=== PATIENT | male | born 1960 | race Caucasian/White ===

== ENCOUNTER 2019-04-30 18:32 | Inpatient (IN) | payer MEDICAID, OTHER ==
[~2019-04-30] VITALS: Ht 170.2 cm; Wt 86.2 kg
[2019-04-30] MEDS ORDERED: ACETAMINOPHEN 500 MG TAB PO ONE (19:00)
[2019-04-30 19:44] LABS: Albumin 2.6 g/dL (3.4-5.0); BUN/Creatinine Ratio 20.8; Calcium 7.4 mg/dL (8.5-10.1); Potassium 4.1 mmol/L (3.5-5.1)
[2019-04-30 19:50] LABS: Bilirubin, Total 1.2 mg/dL (0.2-1.0); Total Protein 5.7 g/dL (6.4-8.2)
[2019-04-30 19:57] LABS: Basophils # (auto) 0 uL; Basophils % (auto) 0.2 % (0.0-2.0); Eosinophils # (auto) 0 uL; Hematocrit 38.4 % (41.0-53.0); Hemoglobin 13.9 g/dL (13.5-17.5); Lymphocytes # (auto) 0.3 uL; Lymphocytes % (auto) 4.7 % (10.0-50.0); Mean Corpuscular Hemoglobin 33.1 pg (28.0-32.0); Mean Corpuscular Hgb Conc. 36.3 g/dL (32.0-36.0); Monocytes # (auto) 0.1 uL; Monocytes % (auto) 1.7 % (0.0-12.0); Neutrophils # (auto) 5.4 uL; Neutrophils % (auto) 93.4 % (37.0-80.0); Platelet Count (auto) 90 10^3/uL (140-450); Red Blood Cells 4.21 10^6/uL (4.5-5.90); Red Cell Distribution Width 13.1 % (11.8-14.3); White Blood Cell 5.8 10^3/uL (4.4-10.8)
[2019-04-30] MEDS ORDERED: ALBUTEROL SULF 2.5 MG/0.5ML(0.5%) NEB SOLN NEB ONE (20:00)
[2019-04-30] MEDS ORDERED: IPRATROPIUM BROM 0.5 MG/2.5ML INH SOL NEB ONE (20:15)
[2019-04-30 20:56] LABS: INR 1.22 (0.9-1.15); Partial Thromboplastin Time 34.4 sec (23.64-32.05)
[2019-04-30] MEDS ORDERED: IOHEXOL 350 MG/ML 100ML IJ ONE (21:41)
[2019-04-30] MEDS ORDERED: FUROSEMIDE 20 MG/2 ML VIAL IV ONE (21:45)
[2019-04-30] MEDS ORDERED: SODIUM CHL 3% 500 ML IV ONE (22:00)
[2019-05-01] VITALS (8 sets, daily range): BP systolic 105–161; BP diastolic 36–86
[2019-05-01] MEDS ORDERED: TEMAZEPAM 15 MG CAP PO PRN (00:45)
[2019-05-01] MEDS ORDERED: ALBUTEROL SULF 2.5 MG/0.5ML(0.5%) NEB SOLN NEB PRN (00:45)
[2019-05-01] MEDS ORDERED: NITROGLYCERIN 0.4 MG SL TAB SL PRN (00:45)
[2019-05-01] MEDS ORDERED: MORPHINE SULF INJ 2 MG/ML SYRINGE 1ML IV PRN (00:45)
[2019-05-01] MEDS ORDERED: HYDROcodone-ACET 5/325MG TAB PO PRN (00:45)
[2019-05-01] MEDS ORDERED: ONDANSETRON HCL 4 MG/2 ML VIAL IV PRN (00:45)
--- NOTE | 2019-05-01 01:55 | NUR ---
Admit to [facility] ELISEO TRUJILLO admitted to [facility] via gurney on dimension warehouse supervisor, and portable 02. Patient transferred to bed, connected to unit monitoring and oxygen, and weighed by bed scale. Patient oriented to Claudette perez RN, unit, room, bed, and unit policies regarding patient care and visiting hours. All questions and concerns addressed, patient verbalized understanding. NOTE: PATIENT IS AWAKE, ALERT AND ORIENTED X4. NO DISTRESS OR PAIN NOTED. ON 5L N/C POX 91%. PHYSICAL ASSESSMENT COMPLETED, SEE INTERVENTIONS. INSTRUCTED ON POC AND TO CALL FOR ASSIST NEEDED. BED IS IN THE LOWEST POSITION WITH SIDE RAILS UP X2, CALL LIGHT IS WITHIN REACH.
[2019-05-01] MEDS ORDERED: methylPREDNISolone SOD SUCC 125 MG/2 ML VL IV ONE (02:00)
[2019-05-01] MEDS ORDERED: LEVOFLOXACIN 500MG 100 ML IV ONE (02:00)
[2019-05-01] MEDS ORDERED: SODIUM CHL 3% 500 ML IV ONE ×2 (02:00→06:30)
[2019-05-01] MEDS ORDERED: ALBUMIN 5% 250 ML IV ONE (02:00)
[2019-05-01] MEDS ORDERED: LISI-275 PO (02:45)
[2019-05-01] MEDS: guaiFENesin-DM 100/10mg/5ml SYR PO PRN ×2 (04:14→09:12)
[2019-05-01 05:05] LABS: Hemoglobin 13.5 g/dL (13.5-17.5); Red Blood Cells 4.04 10^6/uL (4.5-5.90); Red Cell Distribution Width 12.8 % (11.8-14.3)
[2019-05-01 05:11] LABS: Platelet Count (auto) 73 10^3/uL (140-450)
[2019-05-01 05:28] LABS: Calcium 7.7 mg/dL (8.5-10.1); Potassium 4.2 mmol/L (3.5-5.1)
[2019-05-01 05:32] LABS: Albumin 2.4 g/dL (3.4-5.0); BUN/Creatinine Ratio 21.7
[2019-05-01 05:33] LABS: Total Protein 5.6 g/dL (6.4-8.2)
[2019-05-01 05:55] LABS: White Blood Cell 1.8 10^3/uL (4.4-10.8)
[2019-05-01 05:56] LABS: Basophils % (manual) 0 (0.0-2.0); Blast Cells 0; Eosinophils % (manual) 0 (0-7); Metamyelocytes % 0; Myelocytes % 0; Promyelocytes % 0; Reactive Lymphocytes 0
[2019-05-01] MEDS ORDERED: VANCOMYCIN PER PHARMACY 0 MG IV SCH (06:30)
--- NOTE | 2019-05-01 07:00 | NUR ---
ULTRASOUND AT BEDSIDE FOR LIVER US.
--- NOTE | 2019-05-01 07:30 | NUR ---
REPORT GIVEN AND CARE ENDORSED TO JENNIFER PEREZ
--- NOTE | 2019-05-01 07:30 | NUR ---
RECEIVED PATIENT SITTING UP IN THE BED, A/O TIMES 4, O2 AT 5L BY THE N/C, USES THE BSC AND URINAL, NS 3% infusing into the rt hand at 30ml/hr by the iv pump, denies pain, has a dry cough
[2019-05-01] MEDS: VANCOMYCIN 1GM/250ML 250 ML IV SCH ×3 (08:00→20:07)
[2019-05-01 08:04] LABS: Hematocrit 37.6 % (41.0-53.0); Mean Corpuscular Hemoglobin 32.8 pg (28.0-32.0); Mean Corpuscular Hgb Conc. 35.6 g/dL (32.0-36.0)
[2019-05-01 08:05] LABS: Band Neutrophils % (manual) 20; Lymphocytes % (manual) 17 (10.0-50.0); Monocytes % (manual) 7 (0-12)
--- NOTE | 2019-05-01 08:30 | NUR ---
UP TO THE BSC WITH STANDBY ASSISTANCE
[2019-05-01] MEDS: FAMOTIDINE 20 MG TAB PO SCH ×2 (09:12→21:18)
--- NOTE | 2019-05-01 09:15 | NUR ---
DISCUSSED MEDICATIONS WITH THE PATIENT REGARDING THE DOSAGE, USAGE AND THE SIDE EFFECTS, VERBALIZED THAT HE UNDERSTOOD AND MEDS GIVEN ORDERED
--- NOTE | 2019-05-01 09:30 | NUR ---
ECHO BEING DONE
[2019-05-01 09:31] LABS: Basophils # (auto) 0 uL; Basophils % (auto) 0.1 % (0.0-2.0); Eosinophils # (auto) 0 uL; Eosinophils % (auto) 0.1 % (0.0-7.0); Hematocrit 37.3 % (41.0-53.0); Hemoglobin 13.4 g/dL (13.5-17.5); Lymphocytes # (auto) 0.1 uL; Lymphocytes % (auto) 4.3 % (10.0-50.0); Mean Corpuscular Hgb Conc. 35.9 g/dL (32.0-36.0); Monocytes # (auto) 0 uL; Monocytes % (auto) 0.8 % (0.0-12.0); Neutrophils # (auto) 2.5 uL; Neutrophils % (auto) 94.7 % (37.0-80.0); Nucleated Red Blood Cells % 0.1 %; Platelet Count (auto) 71 10^3/uL (140-450); Red Blood Cells 4.05 10^6/uL (4.5-5.90); Red Cell Distribution Width 12.8 % (11.8-14.3); White Blood Cell 2.7 10^3/uL (4.4-10.8)
[2019-05-01 09:51] LABS: Albumin 2.6 g/dL (3.4-5.0); Calcium 7.5 mg/dL (8.5-10.1); Potassium 4.5 mmol/L (3.5-5.1)
[2019-05-01 09:58] LABS: BUN/Creatinine Ratio 22.1; Bilirubin, Total 2.1 mg/dL (0.2-1.0); Total Protein 5.1 g/dL (6.4-8.2)
[2019-05-01] MEDS ORDERED: ASPirin 81 mg TAB PO SCH (10:00)
--- NOTE | 2019-05-01 10:20 | NUR ---
DR STALLWORTH IN TO SEE THE PATIENT AND WROTE NEW ORDER
[2019-05-01] MEDS ORDERED: AZITHROMYCIN 500MG/ 250ML 250 ML IV ONE (10:30)
[2019-05-01] MEDS ORDERED: guaiFENesin-CODEINE Liq 5 ML UD PO ONE (10:30)
--- NOTE | 2019-05-01 11:30 | NUR ---
PATIENT COUGHING, BUT ITS DRY AND CAN'T GET UP A SPECIMEN
--- NOTE | 2019-05-01 12:30 | NUR ---
AZAM CANVAS SHRINKER IN TO SEE THE PATIENT
[2019-05-01] MEDS ORDERED: ASPirin 81 mg TAB PO ONE (12:45)
--- NOTE | 2019-05-01 12:45 | NUR ---
EATING HIS LUNCH SITTING UP IN BED
[2019-05-01 13:00] LABS: Magnesium 2.3 mg/dL (1.6-2.6)
[2019-05-01 13:22] LABS: Urine Bacteria None Seen /hpf (None Seen)
--- NOTE | 2019-05-01 13:30 | NUR ---
SITTING UP IN THE BED WITH HIS EYES CLOSED, PATIENT IS COUGHING BUT HAS A DRY COUGH
[2019-05-01] MEDS ORDERED: ACETYLCYSTEINE 10 %(100MG/ML) SOL 4ML NEB SCH (14:00)
[2019-05-01 14:06] LABS: Alcohol, Urine < 3.0 mg/dL (0-5); Cannabinoid Screen, Urine NEGATIVE (NEGATIVE)
[2019-05-01 14:15] LABS: Urine Specific Gravity 1.014 (1.001-1.035)
[2019-05-01 14:16] LABS: Urine Blood 2+ /uL (Negative)
[2019-05-01 14:17] LABS: Amphetamine Screen, Urine NEGATIVE (NEGATIVE); Barbiturate Scree,Urine NEGATIVE (NEGATIVE); Benzodiazephine Screen, Urine NEGATIVE (NEGATIVE); Cocaine Screen, Urine NEGATIVE (NEGATIVE); Opiate Scree,Urine POSITIVE (NEGATIVE); Phencyclidine Screen, Urine NEGATIVE (NEGATIVE)
[2019-05-01 14:18] LABS: Urine WBC <1 /hpf (0 - 3)
[2019-05-01 14:19] LABS: Urine Amorphous Crystal FEW /hpf (None Seen)
--- NOTE | 2019-05-01 14:40 | NUR ---
3%NS STOPPED DUE TO LEVEL OF 142
--- NOTE | 2019-05-01 15:05 | NUR ---
IN TO SEE THE PATENT
--- NOTE | 2019-05-01 15:20 | NUR ---
DR CENTENO IN TO SEE THE PATIENT AND WROTE NEW ORDERS FOR RT
[2019-05-01] MEDS ORDERED: DESMOPRESSIN ACET 4 MCG/1 ML AMPULE IV ONE (16:00)
[2019-05-01] MEDS: D5W 5% 1,000 ML IV SCH ×2 (16:00→21:18)
[2019-05-01] MEDS: guaiFENesin-CODEINE Liq 5 ML UD PO PRN ×2 (16:39→21:20)
--- NOTE | 2019-05-01 16:39 | NUR ---
cough syrup given
--- NOTE | 2019-05-01 17:44 | NUR ---
STATES THE COUGH SYRUP HELPS HIM WITH HIS COUGH
--- NOTE | 2019-05-01 18:22 | NUR ---
SITTING UP IN THE BED A/O TIMES 4, O2 AT 4L BY THE N/C, D5W AT 150ML/HR INFUSING BY THE IV PUMP, USES THE URINAL OR BSC, SALINE LOCK TO THE RT HAND INTACT FLUSHED AND PATENT, NO COMPLAINTS OF PAIN, BREATHING TREATMENT BEING GIVEN, WILL CONTINUE TO MONITOR AND GIVE REPORT TO THE NEXT SHIFT, FAMILY IN TO VISIT
[2019-05-01] MEDS: ACETYLCYSTEINE 20%(200MG/ML) SOL 4ML NEB SCH ×2 (18:24→21:53)
[2019-05-01] MEDS: IPRATROPIUM BROM 0.5 MG/2.5ML INH SOL NEB SCH ×2 (18:24→21:53)
[2019-05-01] MEDS: ALBUTEROL SULF 2.5 MG/0.5ML(0.5%) NEB SOLN NEB SCH ×2 (18:24→21:53)
--- NOTE | 2019-05-01 20:00 | NUR ---
SHIFT OPENING NOTE RECEIVED PATIENT AWAKE, ALERT AND ORIENTED X4. NO DISTRESS OR PAIN NOTED. ON 5L N/C POX 90%. CONTINUOUSLY COUGHS. PHYSICAL ASSESSMENT COMPLETED, SEE INTERVENTIONS. INSTRUCTED ON POC AND TO CALL FOR ASSIST NEEDED. BED IS IN THE LOWEST POSITION WITH SIDE RAILS UP X2, CALL LIGHT IS WITHIN REACH.
[2019-05-01] MEDS: METOPROLOL TARTRATE 25 MG TAB PO SCH (21:18)
[2019-05-02] VITALS (8 sets, daily range): BP systolic 107–118; BP diastolic 56–66
[2019-05-02] MEDS ORDERED: LEVOFLOXACIN 500MG 100 ML IV SCH
[2019-05-02] MEDS: D5W 5% 1,000 ML IV SCH (01:28)
--- NOTE | 2019-05-02 01:30 | NUR ---
MORNING HYGIENE CARE FULL BED BATH PERFORMED USING CHG WIPES AND WARM SOAPY WASH CLOTHES. GOWN CHANGED. PARTIAL LINEN CHANGED. PATIENT REPOSITIONED FOR COMFORT. TOLERATED IT WELL.
--- NOTE | 2019-05-02 01:50 | NUR ---
PATIENT PULLED OUT IV BLOOD NOTED ON THE SHEETS AND GOWN. INTACT IV THAT WAS IN THE RIGHT FOREARM SITTING ON THE TABLE. PATIENT IS CONFUSED AND TRYING TO PULL OUT THINGS. MITTENS PLACED. FULL BED CHANGE DONE. WILL CLOSELY MONITOR.
[2019-05-02] MEDS: IPRATROPIUM BROM 0.5 MG/2.5ML INH SOL NEB SCH ×6 (02:11→22:32)
[2019-05-02] MEDS: ACETYLCYSTEINE 20%(200MG/ML) SOL 4ML NEB SCH ×6 (02:11→22:32)
[2019-05-02] MEDS: ALBUTEROL SULF 2.5 MG/0.5ML(0.5%) NEB SOLN NEB SCH ×6 (02:11→22:32)
[2019-05-02] MEDS ORDERED: HALOPERIDOL LACTATE 5 MG/ML INJ VIAL ONE (03:04)
[2019-05-02] MEDS ORDERED: HALOPERIDOL LACTATE 5 MG/ML INJ VIAL IM ONE (03:15)
--- NOTE | 2019-05-02 03:25 | NUR ---
PATIENT HAS BECOME VERY CONFUSED TRYING TO GET OUT OF BED AND PULL OFF GOWN, TELE PADS, IV. ORDER OBTAINED FOR HALDOL 2.5 MG IM ONCE FROM JAVAD HERRERA.
[2019-05-02 05:15] LABS: Basophils # (auto) 0 uL; Basophils % (auto) 0.7 % (0.0-2.0); Eosinophils # (auto) 0 uL; Hematocrit 35.6 % (41.0-53.0); Lymphocytes # (auto) 0.1 uL; Mean Corpuscular Hemoglobin 33.5 pg (28.0-32.0); Mean Corpuscular Hgb Conc. 36.5 g/dL (32.0-36.0); Mean Corpuscular Volume 91.9 fL (80.0-100.0); Monocytes # (auto) 0.2 uL; Monocytes % (auto) 3.6 % (0.0-12.0); Neutrophils # (auto) 4.6 uL; Neutrophils % (auto) 93.7 % (37.0-80.0); Nucleated Red Blood Cells % 0.1 %; Platelet Count (auto) 81 10^3/uL (140-450); Red Blood Cells 3.88 10^6/uL (4.5-5.90); White Blood Cell 4.9 10^3/uL (4.4-10.8)
[2019-05-02 05:27] LABS: Albumin 2.3 g/dL (3.4-5.0); Calcium 7.9 mg/dL (8.5-10.1); Potassium 4.4 mmol/L (3.5-5.1)
[2019-05-02 05:30] LABS: BUN/Creatinine Ratio 20.3; Bilirubin, Total 1.4 mg/dL (0.2-1.0); Total Protein 5.6 g/dL (6.4-8.2)
--- NOTE | 2019-05-02 06:10 | NUR ---
SPOKE WITH HIS ASIF UPDATED HER ON PATIENTS STATUS AND POC. SAID SHE WILL BE IN HERE AT 8
--- NOTE | 2019-05-02 06:40 | NUR ---
SPOKE WITH HOSPITALIST JAVAD HERRERA REGARDING CONFUSION, AND LOW SODIUM LEVELS. OBTAINED ORDER TO START PATIENT ON 0.9NS AT 75ML/H AND TO RECHECK SODIUM LEVELS EVERY 6 HOURS.
[2019-05-02] MEDS ORDERED: SODIUM CHLORIDE 0.9% 1,000 ML IV SCH (06:45)
--- NOTE | 2019-05-02 06:45 | NUR ---
END OF SHIFT PATIENT LAYING IN BED WITH EYES CLOSED. NS INFUSING AT 75 ML/H. SITTER AT BEDSIDE FOR SAFETY.
--- NOTE | 2019-05-02 07:30 | NUR ---
RECEIVED PATIENT SITTING UP IN THE BED, A/O TIMES 3, BUT SLIGHTLY CONFUSED, ABLE TO FOLLOW COMMANDS, RT HAND WITH NS AT 75ML/HR INFUSING BY THE IV PUMP, STATES HE CAN USE THE URINAL, MITTENS TO BOTH HANDS DUE TO HIS CONFUSION , SITTER AT BEDSIDE, DENIES PAIN, SCD'S TO BOTH LEGS
--- NOTE | 2019-05-02 08:40 | NUR ---
SITTER AT THE BESIDE TRIED TO GET THE PATIENT TO EAT HIS BREAKFAST BUT HE REFUSED
--- NOTE | 2019-05-02 09:15 | NUR ---
PATIENT HELPING WITH DOING ADLS
[2019-05-02] MEDS ORDERED: FUROSEMIDE 20 MG/2 ML VIAL IV ONE (09:45)
--- NOTE | 2019-05-02 09:50 | NUR ---
DR SANTOS IN TO SEE THE PATIENT
[2019-05-02] MEDS: VANCOMYCIN 1GM/250ML 250 ML IV SCH ×2 (09:51→21:14)
[2019-05-02] MEDS: METOPROLOL TARTRATE 25 MG TAB PO SCH (10:00)
[2019-05-02] MEDS ORDERED: ASPirin 81 mg TAB PO SCH (10:00)
[2019-05-02] MEDS ORDERED: LISINOPRIL 10 MG TAB PO SCH (10:00)
--- NOTE | 2019-05-02 10:00 | NUR ---
EXPLAIN MEDICATIONS TO THE PATIENT AND HIS REGARDING THE DOSAGE, USAGE AND THE SIDE EFFECTS, VERBALIZED THAT THEY UNDERSTOOD AND MEDS GIVEN ORDERED
--- NOTE | 2019-05-02 10:00 | NUR ---
URINE COLLECTED AND SENT TO THE LAB
[2019-05-02] MEDS: FAMOTIDINE 20 MG TAB PO SCH ×2 (10:02→21:15)
--- NOTE | 2019-05-02 10:15 | NUR ---
DR STALLWORTH INTO SEE THE PATIENT AND WROTE NEW ORDERS
--- NOTE | 2019-05-02 10:20 | NUR ---
SPUTUM COLLECTED AND SENT TO THE LAB
--- NOTE | 2019-05-02 10:30 | NUR ---
IN TO SEE THE PATIENT
--- NOTE | 2019-05-02 11:00 | NUR ---
SITTING UP IN THE BED TALKING TO HIS FAMILY
[2019-05-02] MEDS: AZITHROMYCIN 500MG/ 250ML 250 ML IV SCH (11:28)
--- NOTE | 2019-05-02 12:00 | NUR ---
PATIENT SITTING UP IN THE BED TALKING WITH HIS FAMILY
[2019-05-02 12:51] LABS: Potassium 3.7 mmol/L (3.5-5.1)
[2019-05-02] MEDS: LEVOFLOXACIN 750MG 150 ML IV SCH (12:56)
--- NOTE | 2019-05-02 13:02 | NUR ---
DAUGHTER AND AT THE BEDSIDE
--- NOTE | 2019-05-02 13:27 | NUR ---
SITTING UP IN THE BED EATING HIS LUNCH FAMILY AT THE BEDSIDE
--- NOTE | 2019-05-02 14:24 | NUR ---
BREATHING TREATMENT GIVEN
[2019-05-02 15:27] LABS: BUN/Creatinine Ratio 15.7; Potassium 3.7 mmol/L (3.5-5.1)
--- NOTE | 2019-05-02 15:29 | NUR ---
SITTING UP IN THE BED TALKING TO HIS
--- NOTE | 2019-05-02 15:55 | NUR ---
DR SANTOS BACK TO SEE THE PATIENT AND TALKING TO THE
--- NOTE | 2019-05-02 16:04 | NUR ---
SON IN TO SEE THE PATIENT
[2019-05-02] MEDS ORDERED: URE NA PO SCH (16:30)
[2019-05-02] MEDS ORDERED: UREA 15gm PO Powder PKG PO ONE (17:00)
--- NOTE | 2019-05-02 17:15 | NUR ---
FAMILY IN TALKING WITH HAS FAMILY
--- NOTE | 2019-05-02 17:54 | NUR ---
FAMILY AT THE BEDSIDE, PATIENT WATCHING TV, NO COMPLAINTS
--- NOTE | 2019-05-02 18:18 | NUR ---
FAMILY AT THE BEDSIDE, LYING IN BED APPEARS TO BE SLEEPING, O2 AT 5L BY THE OXYMIZER, ASKING FOR THE URINAL WHEN HE NEEDS TO URINATE, SALINE LOCK TO THE RT HAND FLUSHED AND PATENT, NO COMPLAINTS OF PAIN, O2 SAT 92%, NO SOB NOTED. BLOOD BE DRAWN ,WILL CONTINUE TO MONITOR AND GIVE REPORT TO THE NEXT SHIFT
[2019-05-02 19:24] LABS: Calcium 7.9 mg/dL (8.5-10.1); Potassium 3.7 mmol/L (3.5-5.1)
[2019-05-02] MEDS ORDERED: SODIUM CHL 3% 250 ML IV ONE (19:45)
[2019-05-02] MEDS ORDERED: FUROSEMIDE 40 MG/4 ML VIAL IV ONE (20:00)
[2019-05-02] MEDS: URE NA PO SCH (21:15)
[2019-05-02 22:51] LABS: Calcium 7.7 mg/dL (8.5-10.1); Potassium 3.5 mmol/L (3.5-5.1)
--- NOTE | 2019-05-02 23:13 | NUR ---
Start of shift pt's breathing seemed labored and O2 sat mid to upper 80's. RT placed pt on hi-flow, pt current O2 sat 92% on 30% FiO2. Lasix given as ordered. Pt using urinal. Urine went from coral to light yellow. Will continue to monitor. Last Na+ was 121. Pt seems more confused as night goes on with talking to self noted.
[2019-05-03] VITALS (10 sets, daily range): BP systolic 104–118; BP diastolic 47–73
[2019-05-03] MEDS: IPRATROPIUM BROM 0.5 MG/2.5ML INH SOL NEB SCH ×6 (02:42→22:02)
[2019-05-03] MEDS: ACETYLCYSTEINE 20%(200MG/ML) SOL 4ML NEB SCH ×6 (02:42→22:02)
[2019-05-03] MEDS: ALBUTEROL SULF 2.5 MG/0.5ML(0.5%) NEB SOLN NEB SCH ×6 (02:43→22:02)
[2019-05-03] MEDS: ACETAMINOPHEN 325 MG TAB PO PRN ×3 (03:52→23:55)
[2019-05-03 05:38] LABS: Basophils # (auto) 0 uL; Basophils % (auto) 0.3 % (0.0-2.0); Eosinophils # (auto) 0 uL; Hemoglobin 12.7 g/dL (13.5-17.5); Lymphocytes # (auto) 0.2 uL; Lymphocytes % (auto) 2.6 % (10.0-50.0); Mean Corpuscular Hemoglobin 33.2 pg (28.0-32.0); Mean Corpuscular Hgb Conc. 36.2 g/dL (32.0-36.0); Mean Corpuscular Volume 91.9 fL (80.0-100.0); Monocytes # (auto) 0.2 uL; Monocytes % (auto) 2.7 % (0.0-12.0); Neutrophils # (auto) 5.8 uL; Neutrophils % (auto) 94.4 % (37.0-80.0); Nucleated Red Blood Cells % 0.1 %; Platelet Count (auto) 112 10^3/uL (140-450); Red Blood Cells 3.82 10^6/uL (4.5-5.90); White Blood Cell 6.1 10^3/uL (4.4-10.8)
[2019-05-03 05:52] LABS: Potassium 3.4 mmol/L (3.5-5.1)
[2019-05-03 05:55] LABS: Albumin 2.2 g/dL (3.4-5.0); BUN/Creatinine Ratio 19.1
[2019-05-03 05:58] LABS: Bilirubin, Total 1.5 mg/dL (0.2-1.0); Total Protein 5.7 g/dL (6.4-8.2)
--- NOTE | 2019-05-03 06:32 | NUR ---
Pt has remained stable throughout shift. Did not tolerate Hi-flow entire shift and was switched back to Oxymizer mid shift and tolerated that well and was able to maintain O2 saturation WNL. Full bath and linen changed. Tolerated well. Pt has been up this morning talking on his cell phone to his . No signs or symptoms of distress. At 0400 temp was 100 degrees orally. Tylenol was given. Pt was very restless during shift but this morning he has been much more restful with small periods of restlessness. During this shift pt had to be watched closely for safety due to confusion and restlessness but has remained safe. Will continue to monitor.
--- NOTE | 2019-05-03 07:21 | NUR ---
Stable, resting in bed. Report given to am shift, care endorsed.
--- NOTE | 2019-05-03 08:00 | NUR ---
Opening Shift Note Assumed care of patient, laying in bed eyes closed, arousable to voice, not verbally answering questions, moves head for yes and no, able to follow commands. No S/S of distress/SOB or pain. Patient saturation 90% at 5 LPM oxygen via oxymizer. Bed locked on low position, side rails up x2, bed alarms on at all times, call solorio within reach, instructed to call for needed assistance, will continue to monitor for changes Q1hr and PRN.
--- NOTE | 2019-05-03 08:52 | NUR ---
Lenard rodriguez still pending, called lab, spoke to Lakshmi
[2019-05-03] MEDS: VANCOMYCIN 1GM/250ML 250 ML IV SCH (09:06)
[2019-05-03] MEDS ORDERED: POTASSIUM CHLORIDE 60 MEQ, LIDOCAINE 1% (LOCAL ANESTH.) 6 ML in SODIUM CHL 0.9% 500 ML IV ONE (09:30)
--- NOTE | 2019-05-03 09:35 | NUR ---
Dr Rodgers at bedside, updated on patient's status. Patient seen and examined. Received verbal order to check patient's sodium at 4pm today.
[2019-05-03] MEDS: AZITHROMYCIN 500MG/ 250ML 250 ML IV SCH (09:59)
[2019-05-03] MEDS: LEVOFLOXACIN 750MG 150 ML IV SCH (09:59)
[2019-05-03] MEDS ORDERED: FUROSEMIDE 40 MG/4 ML VIAL IV SCH (10:00)
--- NOTE | 2019-05-03 10:00 | NUR ---
Patient's Nicole at bedside, updated on patient's status and POC. verbalized understanding. All questions and concerns addressed.
--- NOTE | 2019-05-03 10:30 | NUR ---
Dr Otto at bedside,updated on patient's status. Patient seen and examined. Received verbal order to do ABG and place PICC line. Orders read back and verified. Will carry out.
[2019-05-03] MEDS ORDERED: cefTRIAXone 1GM/50ML D5W 50 ML IV ONE (11:00)
--- NOTE | 2019-05-03 11:00 | NUR ---
Dr Fuentes at bedside, updated on patient's status and ABG report. Patient seen and examined. Will carry out new orders.
--- NOTE | 2019-05-03 11:05 | NUR ---
Patient switched to 45 LPM Hi flow oxygen from 5 LPM oxymizer. Patient saturation 90%. Will continue to monitor.
--- NOTE | 2019-05-03 11:11 | NUR ---
Sputum sample sent to lab
[2019-05-03] MEDS ORDERED: guaiFENesin-DM 100/10mg/5ml SYR PO PRN (11:15)
[2019-05-03] MEDS ORDERED: ENOXAPARIN SOD 40 MG/0.4 ML SYRINGE SC ONE (11:15)
[2019-05-03] MEDS: FAMOTIDINE 20 MG TAB PO SCH ×2 (11:31→22:37)
[2019-05-03] MEDS: URE NA PO SCH ×2 (11:32→22:31)
[2019-05-03] MEDS: DEMECLOCYCLINE HCL 150 MG TAB PO SCH ×3 (11:32→23:13)
[2019-05-03 11:40] LABS: Protein, Urine 57.6 mg/dL (0.0-11.9)
--- NOTE | 2019-05-03 13:12 | NUR ---
Patient's temperature 101.3F, cooling measures done, will continue to monitor.
--- NOTE | 2019-05-03 14:30 | NUR ---
Came back form ashley, Johnnie HOFFMANN at bedside. Patient's Hi flow increased to 50 LPM, 65% FIO2, oxygen saturation 90%.
--- NOTE | 2019-05-03 14:35 | NUR ---
Patient's temperature 102 F. Cooling measures done. Will give Tylenol PRN. Will continue to monitor.
--- NOTE | 2019-05-03 16:00 | NUR ---
Patient's temperature 101F orally. Will continue to monitor.
[2019-05-03] MEDS ORDERED: UREA 15gm PO Powder PKG PO ONE (17:00)
--- NOTE | 2019-05-03 17:00 | NUR ---
Patient's temperature 100F orally. Cooling measures continued. Will continue to monitor.
--- NOTE | 2019-05-03 18:49 | NUR ---
Patient's sodium level 126, paged Dr Rodgers. Awaiting call back.
--- NOTE | 2019-05-03 19:03 | NUR ---
Received call from Dr Rodgers, updated on patient's status. verbalized understanding. Will check BMP tomorrow morning.
--- NOTE | 2019-05-03 19:30 | NUR ---
REPORT RECEIVED, ASSUMED CARE.
--- NOTE | 2019-05-03 22:41 | NUR ---
DAUGHTER CARMEL GARCIA CALLED, GAVE UPDATE, EXPLAINED POC AND ADDRESSED ALL QUESTIONS AND CONCERNS. DAUGHTER RESPONDEDWITH UNDERSTANDING AND COMPLIANCE.
[2019-05-04] VITALS (60 sets, daily range): BP systolic 73–147; BP diastolic 37–90
--- NOTE | 2019-05-04 00:07 | NUR ---
REPORT AND CARE GIVEN OFF TO AMANDA PEREZ.
--- NOTE | 2019-05-04 00:16 | NUR ---
Received report from Bulmaro PEREZ, assumed care of pt. [place]. No S/S of distress at this time. Will continue to monitor.
[2019-05-04] MEDS: ACETYLCYSTEINE 20%(200MG/ML) SOL 4ML NEB SCH ×6 (02:25→22:02)
[2019-05-04] MEDS: IPRATROPIUM BROM 0.5 MG/2.5ML INH SOL NEB SCH ×6 (02:25→22:01)
[2019-05-04] MEDS: ALBUTEROL SULF 2.5 MG/0.5ML(0.5%) NEB SOLN NEB SCH ×6 (02:25→22:02)
[2019-05-04 06:00] LABS: Hematocrit 39.8 % (41.0-53.0); Mean Corpuscular Hemoglobin 33.2 pg (28.0-32.0); Mean Corpuscular Hgb Conc. 35.2 g/dL (32.0-36.0); Mean Corpuscular Volume 94.2 fL (80.0-100.0); Platelet Count (auto) 154 10^3/uL (140-450); Red Blood Cells 4.22 10^6/uL (4.5-5.90); Red Cell Distribution Width 13.1 % (11.8-14.3); White Blood Cell 10.8 10^3/uL (4.4-10.8)
[2019-05-04 06:06] LABS: Basophils % (manual) 0 (0.0-2.0); Blast Cells 0; Eosinophils % (manual) 0 (0-7); Metamyelocytes % 0; Myelocytes % 0; Promyelocytes % 0; Reactive Lymphocytes 0
[2019-05-04 06:12] LABS: Calcium 7.8 mg/dL (8.5-10.1); Potassium 3.7 mmol/L (3.5-5.1)
[2019-05-04 06:17] LABS: BUN/Creatinine Ratio 30.4; Bilirubin, Total 1.9 mg/dL (0.2-1.0)
[2019-05-04] MEDS: DEMECLOCYCLINE HCL 150 MG TAB PO SCH ×3 (07:50→18:29)
--- NOTE | 2019-05-04 08:40 | NUR ---
RESPIRATORY RESP 33-38 AND LABORED, PATIENT SOB WITH SPEAKING. LUNGS COARSE WITH WHEEZING BILAT USP. O2 ON HI-FLOW FIO2 70%, 55 LITERS. PATIENT STATES NOT EXPECTORATING SPUTUM. SAO2 90%. RE DYE HAND INFORMED PATIENT OF IMPENDING TRANSFER TO ICU FOR HIGHER LEVEL OF CARE NEEDED IN ICU - VERBALIZES UNDERSTANDING BUT REQUEST TO WAIT UNTIL 1030 WHEN PATIENT'S ARRIVES. PATIENT INCONTINENT OF LG AMT ORANGE URINE. RE DYE HAND VOICED IMPORTANCE OF PLACING URINARY CATHETER - PATIENT REFUSES AT PRESENT.
[2019-05-04 08:46] LABS: Band Neutrophils % (manual) 5; Lymphocytes % (manual) 2 (10.0-50.0); Monocytes % (manual) 2 (0-12)
--- NOTE | 2019-05-04 09:00 | NUR ---
TEMP ELEVATED THIS AM - CALLED PHARMACY FOR TYLENOL. BC DONE.
--- NOTE | 2019-05-04 09:30 | NUR ---
DR STALLWORTH VISITS AND EXAMINES PATIENT - ORDERS RECEIVED. SENIOR INFORMATION SYSTEMS ARCHITECT PHONED PATIENT'S - INFORMED HER OF TRANSFER TO ICU - REQUESTS TO TALK TO MD - SPOKE TO DR STALLWORTH.
[2019-05-04] MEDS: cefTRIAXone 1GM/50ML D5W 50 ML IV SCH (09:46)
[2019-05-04] MEDS: FAMOTIDINE 20 MG TAB PO SCH ×2 (10:00→22:38)
[2019-05-04] MEDS: ENOXAPARIN SOD 40 MG/0.4 ML SYRINGE SC SCH (10:00)
[2019-05-04] MEDS ORDERED: FUROSEMIDE 40 MG/4 ML VIAL IV SCH (10:00)
[2019-05-04] MEDS: URE NA PO SCH ×2 (10:00→22:38)
--- NOTE | 2019-05-04 10:30 | NUR ---
DR GODDARD VISITS AND EXAMINES PATIENT - ORDERS RECEIVED.
--- NOTE | 2019-05-04 11:13 | NUR ---
REPORT RECEIVED FROM SOLANGE PEREZ IN [facility].
--- NOTE | 2019-05-04 11:13 | NUR ---
REPORT GIVEN TO CARMEL PEREZ.
--- NOTE | 2019-05-04 11:22 | NUR ---
PATIENT TRANSFERRED TO ROOM 110 PER RN AND PCT WITH PORTABLE O2 PER NON REBREATHER AND MANUFACTURING TECHNOLOGY ANALYST. RT NOTIFIED OF ICU TRANSFER. PATIENT'S AT BEDSIDE - INFORMED OF IMMEDIATE TRANSFER TO ICU - VERBALIZES UNDERSTANDING, MUCH REASSURANCE GIVEN.
--- NOTE | 2019-05-04 11:26 | NUR ---
PATIENT ARRIVED TO ROOM 110 ICU VIA BED CONNECTED TO PORTABLE MONITOR AND OXYGEN, ACCOMPANIED BY SWEAT BAND SEWER AND RESPIRATORY THERAPIST. PATIENT TRANSFERRED TO ICU BED AND CONNECTED TO BEDSIDE MONITOR.
[2019-05-04] MEDS ORDERED: ROCURONIUM 10MG/ML 10ML VIAL IV ONE ×2 (11:30→13:00)
[2019-05-04] MEDS ORDERED: ETOMIDATE (2MG/ML) 20ML VIAL IV ONE ×2 (11:30→13:00)
[2019-05-04] MEDS ORDERED: PROPOFOL 100 ML IV ONE (11:30)
[2019-05-04] MEDS ORDERED: fentaNYL Drip 2500mCg/250mlNS 250 ML IV ONE (11:30)
[2019-05-04] MEDS ORDERED: MIDAZOLAM HCL 1MG/1ML-2 ML VIAL ONE (11:31)
--- NOTE | 2019-05-04 11:42 | NUR ---
INTUBATION/CENTRAL LINE PLACEMENT/OGT PLACEMENT/ALVARADO PLACEMENT DR CENTENO AT BEDSIDE TO INTUBATE PATIENT. MEDICATIONS GIVEN PER MD ORDER. PER MD STARTED PROPOFOL DRIP PER PROTOCOL. INTUBATED 1143 SIZE 8, 24 LIP. VENTILATOR SETTINGS ORDERED BY MD. 1150 DR CENTENO PLACED CENTRAL LINE TO LEFT IJ. OGT PLACED. STAT CXR ORDERED. 1200 ALVARADO CATHETER PLACED AFTER 2 ATTEMPTS, SMALL AMOUNT OF BLEEDING NOTED. WILL CONTINUE TO MONITOR.
[2019-05-04] MEDS: PROPOFOL 100 ML IV SCH ×2 (11:50→15:38)
[2019-05-04] MEDS: fentaNYL Drip 2500mCg/250mlNS 250 ML IV SCH (12:00)
--- NOTE | 2019-05-04 12:11 | NUR ---
Respiratory note: PATIENT INTUBATED BY DR. CENTENO, AT APPROX 1143, FOR IMPENDING RESPIRATORY FAILURE. HE WAS TUBED WITH AN 8.0 ETT AND IT WAS SECURED VIA DIPIKA AT THE 24CM MARKING AT THE LIP. POSITIVE COLOR CHANGE WAS SEEN ON CO2 DETECTOR, BILATERAL BREATH SOUNDS WERE HEARD, AND CONDENSATION WAS SEEN IN THE TUBE. PATIENT WAS PLACED ON V17 V200 VENT WITH THE CHARTED SETTINGS, PER DR. CENTENO'S BEDSIDE ORDERS. SKIN IS WARM/DRY TO THE TOUCH AND IS INTACT NEAR DIPIKA SITE. SLIGHT EDEMA NOTED IN UPPER AND LOWER EXTREMITIES, AND A TRIPLE LUMEN CENTRAL LINE WAS PLACED IN THE LEFT IJ AT THIS TIME. PATIENT IS PARALYZED ON ROCURONIUM DRIP AND IS TOLERATING VENT WELL. VENT PLUGGED INTO RED OUTLET AND ALL ALARMS ARE SET AND AUDIBLE. WILL CONTINUE TO ASSESS PATIENT WELL VENTILATOR FUNCTION.
[2019-05-04] MEDS: MIDAZOLAM DRIP 50 mg/50mL 50 ML IV SCH ×3 (12:15→21:28)
[2019-05-04] MEDS ORDERED: MIDAZOLAM HCL 5 MG/ML-1ML VIAL ONE (12:31)
[2019-05-04] MEDS ORDERED: SODIUM CHLORIDE LOCK 0 ML ONE (12:31)
[2019-05-04] MEDS ORDERED: LIDOCAINE HCL 2% TOP JELLY 5ML TOP ONE (12:31)
[2019-05-04] MEDS ORDERED: NALOXONE HCL 0.4 MG/ML VIAL ONE (12:32)
[2019-05-04] MEDS ORDERED: MIDAZOLAM DRIP 50 mg/50mL 50 ML IV ONE (12:32)
[2019-05-04] MEDS ORDERED: fentaNYL CITRATE 100 MCG/2 ML VL ONE (12:33)
[2019-05-04] MEDS ORDERED: EPINEPHrine HCL 1 MG/1 ML AMP ONE (12:58)
[2019-05-04] MEDS ORDERED: LIDOCAINE 2%HCL (LOCAL ANESTH.) INJ 20ML MDV ONE (12:58)
[2019-05-04] MEDS ORDERED: NOREPINEPHRINE 8 MG/250ML KIT 250 ML IV ONE ×2 (13:07→21:21)
--- NOTE | 2019-05-04 13:59 | NUR ---
NUTRITION ASSESSMENT NOTES Please refer to link notes of nutrition screen form filed under the intervention section of the plan of care for further details. Est. Needs: 1850 kcal to 2350 kcal (20-25 kcal/kgBW), 74 gms to 93 gms pro (0.8-1.0 gms/kgBW). Will continue to monitor pertinent labs and reassess nutrient need prn Thank you. Addendum: 05/04/19 at [address] Amended: Links added.
--- NOTE | 2019-05-04 14:14 | NUR ---
CONSENT SIGNED BY AFTER INFORMATION WAS GIVEN AND EXPLAINED TO HER FOR BRONCHOSCOPY BY DR STALLWORTH. ALL QUESTIONS AND CONCERNS ADDRESSED.
--- NOTE | 2019-05-04 14:20 | NUR ---
DR CENTENO AT BEDSIDE TO PERFORM BRONCHOSCOPY ALONG WITH OR STAFF.
[2019-05-04] MEDS: FLUCONAZOLE 200MG/100ML 100 ML IV SCH (14:53)
[2019-05-04] MEDS: AZITHROMYCIN 500MG/ 250ML 250 ML IV SCH (14:53)
[2019-05-04] MEDS ORDERED: UREA 15gm PO Powder PKG PO ONE (17:00)
--- NOTE | 2019-05-04 19:50 | NUR ---
OPEN NOTES Received patient sedated and intubated. Febrile Temp 100.8F. Full assessment done - refer interventions On IV Levophed for BP support.will continue to monitor
--- NOTE | 2019-05-04 20:00 | NUR ---
SEDATION Patient's RR 30-33/min, stacking breaths Labored breaths noted Suctioned - small thin whitish from ETT Increased sedation for comfort
--- NOTE | 2019-05-04 20:30 | NUR ---
TEMP ELEVATED RECTAL TEMP 102F COOLING MEASURES DONE - COLD COMPRESS ON FOREHEAD, COOLING BLANKET ON
[2019-05-04] MEDS: ACETAMINOPHEN 325 MG TAB PO PRN (20:54)
[2019-05-04] MEDS: NOREPINEPHRINE 8 MG/250ML KIT 250 ML IV SCH (21:25)
[2019-05-04 21:59] LABS: BUN/Creatinine Ratio 23.4; Calcium 7.8 mg/dL (8.5-10.1); Potassium 3.8 mmol/L (3.5-5.1)
--- NOTE | 2019-05-04 22:00 | NUR ---
TEMP REMAINED ELEVATED PLACED ANOTHER COOLING BLANKET ON TOP OF PATIENT, SPONGE BATH DONE WILL CONTINUE TO MONITOR
[2019-05-05] VITALS (107 sets, daily range): BP systolic 80–126; BP diastolic 36–71
[2019-05-05] MEDS: fentaNYL Drip 2500mCg/250mlNS 250 ML IV SCH (00:44)
[2019-05-05] MEDS: DEMECLOCYCLINE HCL 150 MG TAB PO SCH ×5 (00:46→23:54)
[2019-05-05] MEDS: IPRATROPIUM BROM 0.5 MG/2.5ML INH SOL NEB SCH ×6 (01:51→22:23)
[2019-05-05] MEDS: ACETYLCYSTEINE 20%(200MG/ML) SOL 4ML NEB SCH ×6 (01:51→22:23)
[2019-05-05] MEDS: ALBUTEROL SULF 2.5 MG/0.5ML(0.5%) NEB SOLN NEB SCH ×6 (01:51→22:23)
--- NOTE | 2019-05-05 03:55 | NUR ---
Family updated on pt status of ELISEO TRUJILLO called. Correct password obtained. Updated on patient's status and condition. All questions and concerns addressed. verbalized understanding.
[2019-05-05 04:25] LABS: Hematocrit 36.7 % (41.0-53.0); Hemoglobin 12.9 g/dL (13.5-17.5); Mean Corpuscular Hemoglobin 33.6 pg (28.0-32.0); Mean Corpuscular Hgb Conc. 35.2 g/dL (32.0-36.0); Mean Corpuscular Volume 95.4 fL (80.0-100.0); Platelet Count (auto) 195 10^3/uL (140-450); Red Blood Cells 3.84 10^6/uL (4.5-5.90); Red Cell Distribution Width 13.3 % (11.8-14.3); White Blood Cell 14.3 10^3/uL (4.4-10.8)
--- NOTE | 2019-05-05 04:30 | NUR ---
Patient bathe/linen change Patient given complete bath. Skin integrity assessed for any changes. Linens changed. Patient repositioned for comfort.
[2019-05-05 04:42] LABS: Potassium 3.9 mmol/L (3.5-5.1)
[2019-05-05 04:50] LABS: Albumin 1.8 g/dL (3.4-5.0); BUN/Creatinine Ratio 25.8; Bilirubin, Total 1.9 mg/dL (0.2-1.0); Calcium 7.2 mg/dL (8.5-10.1)
[2019-05-05] MEDS: MIDAZOLAM DRIP 50 mg/50mL 50 ML IV SCH ×3 (05:08→22:08)
[2019-05-05 05:09] LABS: Basophils % (manual) 0 (0.0-2.0); Blast Cells 0; Eosinophils % (manual) 0 (0-7); Metamyelocytes % 0; Myelocytes % 0; Promyelocytes % 0; Reactive Lymphocytes 0
[2019-05-05] MEDS: NOREPINEPHRINE 8 MG/250ML KIT 250 ML IV SCH (06:09)
[2019-05-05 06:39] LABS: Band Neutrophils % (manual) 10; Lymphocytes % (manual) 6 (10.0-50.0); Monocytes % (manual) 2 (0-12)
[2019-05-05] MEDS: PROPOFOL 100 ML IV SCH (06:44)
--- NOTE | 2019-05-05 07:00 | NUR ---
SEDATION BREATHING 28-30/MIN, STACKING BREATHS MOST OF THE TIME RE-STARTED IV PROPOFOL
--- NOTE | 2019-05-05 08:15 | NUR ---
WOUND CARE Yuki RN, wound care nurse, at bedside to assess patients skin.
[2019-05-05] MEDS: cefTRIAXone 1GM/50ML D5W 50 ML IV SCH (08:28)
--- NOTE | 2019-05-05 08:30 | NUR ---
LEVOPHED GTT/DIPRIVAN Decreased Levophed gtt to 12mcg for a blood pressure of 121/66, will continue to titrate as tolerated by patient. Increased Diprivan gtt to 10mcg secondary to patient stacking breaths advised by RT Nieves. Will continue to monitor patient closely.
--- NOTE | 2019-05-05 08:35 | NUR ---
WOUND CARE NOTE: Wound care in to see patient due to intubation status and low Jose Antonio score of 13, putting patient to high risk for skin breakdown. Patient is 59 y/o male with admitting diagnosis of Community Acquired Pneumonia. Patient is resting in ICU bed in Rm. 110. Patient is intubated, sedated and mechanically ventilated. Patient appears to be in no pain using Castro Redmond Faces Pain Scale. Skin assessment done with the assistance of patient's nurse, CHRIS Tim. No open wound noted, no pressure injury noted. Repositioned patient for comfort facing his Lt side, redistributed pressure points with pillows. Patient tolerated well. CHRIS Tim at bedside. RECOMMENDATION: Nursing to continue with BID/PRN cleaning and application Barrier cream to sacral, buttocks as preventative per MD order, frequent turning and repositioning schedule as condition permits, redistribute pressure points with pillows, elevate heels on pillows,continue monitoring by wound care while patient is mechanically ventilated. Addendum: 05/05/19 at 1611 by Yuki Quinones RN Amended: Links added.
[2019-05-05] MEDS: FLUCONAZOLE 200MG/100ML 100 ML IV SCH (09:44)
[2019-05-05] MEDS: FAMOTIDINE 20 MG TAB PO SCH ×2 (09:44→22:09)
[2019-05-05] MEDS: AZITHROMYCIN 500MG/ 250ML 250 ML IV SCH (09:44)
[2019-05-05] MEDS: ENOXAPARIN SOD 40 MG/0.4 ML SYRINGE SC SCH (09:45)
--- NOTE | 2019-05-05 09:45 | NUR ---
TEMPERATURE Patients temperature reached 97.5 cooling measures stopped. Will continue to monitor temperature and apply cooling measures as appropriate.
[2019-05-05] MEDS: URE NA PO SCH ×2 (10:00→22:09)
--- NOTE | 2019-05-05 10:00 | NUR ---
LEVOPHED GTT Levophed gtt decreased to 10mcg for a blood pressure of 112/61, will continue to titrate as tolerated by patient.
--- NOTE | 2019-05-05 14:00 | NUR ---
MD Dr. Meier at bedside updated on patient condition with new orders, MD to input into system. MD spoke to , whom is at bedside, regarding plan of care and questions/concerns answered by MD.
[2019-05-05] MEDS ORDERED: VANCOMYCIN PER PHARMACY 0 MG IV SCH (14:30)
--- NOTE | 2019-05-05 14:30 | NUR ---
PHONE CALL Received phone call from daughter, correct password provided and updated on patient condition.
[2019-05-05] MEDS ORDERED: VANCOMYCIN 1GM/250ML 250 ML IV ONE (14:45)
--- NOTE | 2019-05-05 15:40 | NUR ---
MD Dr. Collado at bedside updated on patient condition with new orders received verbally. decreased PEEP to 10. Will continue to monitor patient closely.
[2019-05-05] MEDS ORDERED: BUMETANIDE 2.5mg/10ml (0.25 mg/ml) INJ IV ONE (16:00)
[2019-05-05] MEDS ORDERED: BUMETANIDE 1mg/4ml VIAL (0.25mg/ml) IV ONE (16:15)
[2019-05-05] MEDS ORDERED: UREA 15gm PO Powder PKG PO ONE (17:00)
--- NOTE | 2019-05-05 20:30 | NUR ---
TEMP PATIENT'S TEMP 97.7F COOLING BLANKET OFF COVERED PATIENT WITH WARM BLANKETS WILL CONTINUE TO MONITOR
[2019-05-05] MEDS: Jevity 1.2 Cal/Fiber 1 Liter GT SCH (20:52)
--- NOTE | 2019-05-05 20:53 | NUR ---
STARTED TUBE FEEDING
--- NOTE | 2019-05-05 21:53 | NUR ---
DAUGHTER CALLED Patient's daughter Kallie called. Correct password provided. Updated her of patient's condition. All questions answered. Verbalized understanding.
[2019-05-05] MEDS: PIPERACILLIN-TAZOB 3.375GM 100 ML IV SCH (22:15)
[2019-05-06] VITALS (102 sets, daily range): BP systolic 92–127; BP diastolic 48–69
--- NOTE | 2019-05-06 00:10 | NUR ---
TUBE FEEDING RESIDUAL CHECKED = 0 ML INCREASED FEEDING TO 15ML/HR
[2019-05-06] MEDS: VANCOMYCIN 1GM/250ML 250 ML IV SCH ×2 (01:00→11:34)
--- NOTE | 2019-05-06 01:06 | NUR ---
TEMP ELEVATED Patient's temp 100.4F cooling measures done will continue to monitor
[2019-05-06] MEDS: ACETYLCYSTEINE 20%(200MG/ML) SOL 4ML NEB SCH ×6 (02:23→22:09)
[2019-05-06] MEDS: ALBUTEROL SULF 2.5 MG/0.5ML(0.5%) NEB SOLN NEB SCH ×6 (02:23→22:09)
[2019-05-06] MEDS: IPRATROPIUM BROM 0.5 MG/2.5ML INH SOL NEB SCH ×6 (02:23→22:09)
[2019-05-06] MEDS: fentaNYL Drip 2500mCg/250mlNS 250 ML IV SCH (02:24)
[2019-05-06] MEDS: MIDAZOLAM DRIP 50 mg/50mL 50 ML IV SCH ×2 (02:24→06:47)
[2019-05-06 04:27] LABS: Hematocrit 35.6 % (41.0-53.0); Hemoglobin 12.3 g/dL (13.5-17.5); Mean Corpuscular Hemoglobin 33.1 pg (28.0-32.0); Mean Corpuscular Hgb Conc. 34.5 g/dL (32.0-36.0); Mean Corpuscular Volume 96.2 fL (80.0-100.0); Platelet Count (auto) 187 10^3/uL (140-450); Red Blood Cells 3.71 10^6/uL (4.5-5.90); Red Cell Distribution Width 13.2 % (11.8-14.3)
[2019-05-06 04:28] LABS: Albumin 1.7 g/dL (3.4-5.0); BUN/Creatinine Ratio 40.3; Calcium 7.7 mg/dL (8.5-10.1); Potassium 3.5 mmol/L (3.5-5.1)
[2019-05-06 04:31] LABS: Bilirubin, Total 1.9 mg/dL (0.2-1.0); Total Protein 5.3 g/dL (6.4-8.2)
[2019-05-06 04:35] LABS: Basophils % (manual) 0 (0.0-2.0); Blast Cells 0; Metamyelocytes % 0; Myelocytes % 0; Promyelocytes % 0; Reactive Lymphocytes 0
--- NOTE | 2019-05-06 05:00 | NUR ---
TUBE FEEDING RESIDUAL CHECKED = 0ML INCREASED FEEDING TO 20ML/HR
[2019-05-06] MEDS: PIPERACILLIN-TAZOB 3.375GM 100 ML IV SCH ×3 (06:10→22:23)
[2019-05-06] MEDS: DEMECLOCYCLINE HCL 150 MG TAB PO SCH ×3 (06:11→18:06)
--- NOTE | 2019-05-06 07:06 | NUR ---
Respiratory note: RECEIVED PATIENT ON V17 V200 VENT ORALLY INTUBATED WITH A 8.0 ETT SECURED VIA DIPIKA AT THE 25CM MARKING AT THE LIP, AND MECHANICALLY VENTILATED WITH THE CHARTED SETTINGS. SPO2 93%, LUNG SOUNDS CLEAR T/O, NO SECRETIONS WHEN SUCTIONED. SKIN IS COOL/DRY TO THE TOUCH AND IS INTACT NEAR DIPIKA SITE. THERE IS AN OG T IN PLACE AND IS SECURED TO THE ETT, THERE IS A TRIPLE LUMEN CENTRAL LINE PLACED IN THE LEFT IJ. UPPER/LOWER EXTREMITIES ARE SHOWING NO EDEMA. PATEINT IS UNRESPONSIVE TO BOTH VERBAL/TACTILE STIMULI AND IS SEDATED ON VERSED AND FENTANYL DRIPS. HE IS RESTING COMFORTABLY AND TOLERATING VENT WELL, NO CHANGES MADE. VENT PLUGGED INTO RED OUTLET AND ALL ALARMS ARE SET AND AUDIBLE. WILL CONTINUE TO ASSESS PATIENT WELL VENTILATOR FUNCTION. [employer] INLINE.
[2019-05-06 07:12] LABS: Band Neutrophils % (manual) 3; Eosinophils % (manual) 3 (0-7); Lymphocytes % (manual) 4 (10.0-50.0); Monocytes % (manual) 1 (0-12)
--- NOTE | 2019-05-06 07:30 | NUR ---
REPORT REPORT GIVEN TO CHRIS PATEL
[2019-05-06] MEDS: NOREPINEPHRINE 8 MG/250ML KIT 250 ML IV SCH ×2 (09:00→21:25)
--- NOTE | 2019-05-06 09:40 | NUR ---
SPOKE WITH PATIENTS DAUGHTER CARMEL PROVIDE PASSWORD. UPDATED ON PATIENTS CURRENT STATUS AND PLAN OF CARE. ADDRESSED CONCERNS.
[2019-05-06] MEDS: FAMOTIDINE 20 MG TAB PO SCH (10:00)
--- NOTE | 2019-05-06 10:37 | NUR ---
Nutrition Consult and Follow-up Notes Wt.: 100 kg today. Pt remains intubated, sedated, currently NPO with Jevity 1.2 Alexsander @ 20 ml/hr providing 576 kcal, 27 gms pro, 387 ml free water, tolerates feeding, no residuals noted by RN this morning. Pt with inadequate EN support d/t low initiation rate delivery of concentrated formula aeb current EN infusion meets 25% to 31 % of est caloric needs and 29% to 36% of est protein need. Noted pt's for active Wound, Pulmonary, Nephrology and Cardiology consults. Est. Needs: 1850 kcal to 2350 kcal (20-25 kcal/kgBW), 74 gms to 93 gms pro (0.8-1.0 gms/kgBW). Will continue to monitor pertinent labs and reassess nutrient need prn Labs: Gluc 136 H, Na 130 L, Cl 89 L, BUN 27 H, Cr 0.67 L, Ca 7.7 L, Tot andreina 1.9 H, AST 56 H, ALT 88 H, Tpro 5.3 L, Alb 1.7 L Skin: Jose Antonio scale 13, mod risk, skin intact per documentation analyst. GI: P had 4x BM last 05/01/19 per documentation analyst. PES: Increased nutrient needs r/t acute/chronic medical condition aeb intubated, sedated, severe hypoalbuminemia, NPO. Altered nutrition related lab values r/t current/chronic medical condition aeb hyponatremia, hypochloremia, elev. LFTs, hyperbilirubinemia, hypocalcemia and severe hypoalbuminemia Obesity r/t energy input more than body requirement [id number]% IBW, BMI 32.3 kg/m2 and increased body adiposity Will continue to monitor NPO status, EN tolerance, skin status, pertinent labs and weight trend. F/u in 2 to 3 days. Rec.: 1.) If still NPO with EN support, consider gradual increase on feeding rate of Jevity 1.2 Alexsander @ 70 ml/hr goal rate as tolerated when medically appropriate. 2.) If Albumin continues trending down, consider Prostat 1 pkt BID. 3.) Resume to oral diet when medically appropriate. 4.) Refer pt to CDE/RD for further nutrition education and weight monitoring upon discharge. 5.) Continue current plan of care. Thank you for this consult.
[2019-05-06] MEDS: ENOXAPARIN SOD 40 MG/0.4 ML SYRINGE SC SCH (11:34)
[2019-05-06] MEDS: UREA 15gm PO Powder PKG PO SCH ×2 (11:35→23:08)
[2019-05-06] MEDS: PROPOFOL 100 ML IV SCH (12:16)
[2019-05-06] MEDS ORDERED: CALCIUM GLUC 4.65meq/50ml D5AE 50 ML IV ONE (12:30)
--- NOTE | 2019-05-06 12:50 | NUR ---
PATIENTS AND DAUGHTER AT BEDSIDE
--- NOTE | 2019-05-06 12:54 | NUR ---
[employer]: YELLOW METAL [employer] TAKEN BY . STATES SHE WILL TAKE IT HOME.
[2019-05-06] MEDS: FLUCONAZOLE 200MG/100ML 100 ML IV SCH (13:00)
--- NOTE | 2019-05-06 13:11 | NUR ---
DR CENTENO AT BEDSIDE DISCUSSED PATIENTS STATUS AND PLAN OF CARE WITH PATIENTS AND DAUGHTER. NEW ORDERS RECEIVED AND IMPLEMENTED
--- NOTE | 2019-05-06 13:15 | NUR ---
Respiratory note: PEEP DECREASED TO 8CMH20 AT THIS TIME BY DE. CENTENO. CHRIS PATEL AT BEDSIDE AND AWARE OF CHANGE.
[2019-05-06] MEDS: DexMEDEtomidine 400 MCG in D5W 5% 96 ML IV SCH (13:23)
[2019-05-06] MEDS ORDERED: BUMETANIDE 2.5mg/10ml (0.25 mg/ml) INJ IV ONE (13:30)
--- NOTE | 2019-05-06 13:30 | NUR ---
DR PICKETT AT BEDSIDE DISCUSSED PLAN OF CARE WITH PATIENTS .
--- NOTE | 2019-05-06 14:39 | NUR ---
Assessment Pt is a 59 yr old intubated male. Pt's , Nicole, was bedside and answered questions on pt's behalf. Pt lives with , in an RV, pt's contact # is [phone]. Prior to admit, pt was ambulatory, and independent with ADL's. Pt admitted due to sepsis. 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 SW educated pt's about [facility] and getting medical transport for future doctor's appointments if unable to to get family to assist her. No needs identified. SW will further assess for pt's needs closer to d/c. Addendum: 05/06/19 at 1445 by BLAINE CASAS Amended: Links added.
--- NOTE | 2019-05-06 15:46 | NUR ---
DR SANTOS AT BEDSIDE DISCUSSED STATUS AND PLAN OF CARE WITH PATIENTS
[2019-05-06] MEDS: LACTULOSE 20Gm/30ML SOLN PO SCH (18:06)
--- NOTE | 2019-05-06 19:30 | NUR ---
OPEN NOTES Received patient sedated with IV Fentanyl. Cough and gag present. Pupils both sluggishly reactive to light. Intubated on AC mode, FIO2 30%. Breathing comfortably. Sats 96-98%. Minimal secretions noted. ETCO2 ranges 50-57 - will continue to monitor.Daily ABG and chest xray ordered by Dr. Collado. VS stable. On IV Levophed at 4mcg/min. Rectal temp 99.3F OGT checked = 0 ml residual. On tube feeding Jevity at 30ml/hr - tolerating well No BM yet - started on Lactulose today. Left IJ TLC -dressing dry and intact. Full assessment done refer interventions
--- NOTE | 2019-05-06 22:00 | NUR ---
SEDATION TITRATING SEDATION DOWN FOR CPAP TRIAL IN AM SEE IV SPREADSHEET
--- NOTE | 2019-05-06 22:15 | NUR ---
URE-NA MEDICATION NOT IN THE CASSETTE CALLED PHARMACY, THEY WILL SUPPLY
[2019-05-07] VITALS (94 sets, daily range): BP systolic 83–126; BP diastolic 31–124
[2019-05-07] MEDS: LACTULOSE 20Gm/30ML SOLN PO SCH ×4 (00:07→17:59)
[2019-05-07] MEDS: VANCOMYCIN 1GM/250ML 250 ML IV SCH (00:07)
[2019-05-07] MEDS: DEMECLOCYCLINE HCL 150 MG TAB PO SCH ×2 (00:08→05:29)
--- NOTE | 2019-05-07 00:30 | NUR ---
TUBE FEEDING HELD FOR CPAP TRIAL LATER
[2019-05-07] MEDS: ACETYLCYSTEINE 20%(200MG/ML) SOL 4ML NEB SCH ×6 (01:58→22:17)
[2019-05-07] MEDS: IPRATROPIUM BROM 0.5 MG/2.5ML INH SOL NEB SCH ×6 (01:58→22:17)
[2019-05-07] MEDS: ALBUTEROL SULF 2.5 MG/0.5ML(0.5%) NEB SOLN NEB SCH ×6 (01:58→22:17)
[2019-05-07 03:37] LABS: Hematocrit 35.8 % (41.0-53.0); Hemoglobin 12.5 g/dL (13.5-17.5); Mean Corpuscular Hemoglobin 33.4 pg (28.0-32.0); Mean Corpuscular Volume 95.5 fL (80.0-100.0); Platelet Count (auto) 196 10^3/uL (140-450); Red Blood Cells 3.75 10^6/uL (4.5-5.90); Red Cell Distribution Width 13.4 % (11.8-14.3); White Blood Cell 10.3 10^3/uL (4.4-10.8)
[2019-05-07 03:56] LABS: Albumin 1.6 g/dL (3.4-5.0); Calcium 7.7 mg/dL (8.5-10.1); Potassium 3.5 mmol/L (3.5-5.1)
[2019-05-07 04:00] LABS: Bilirubin, Total 1.4 mg/dL (0.2-1.0)
[2019-05-07 04:02] LABS: Basophils % (manual) 0 (0.0-2.0); Blast Cells 0; Metamyelocytes % 0; Myelocytes % 0; Promyelocytes % 0; Reactive Lymphocytes 0
--- NOTE | 2019-05-07 04:30 | NUR ---
Patient bathe/linen change Patient given sponge bath. Skin integrity assessed for any changes. Linens changed. Patient repositioned for comfort.
[2019-05-07 04:38] LABS: BUN/Creatinine Ratio 45.7
--- NOTE | 2019-05-07 05:15 | NUR ---
RESPIRATORY Patient's RR 26-30/min, stacking breaths, sats 88% IV Fentanyl was at 25mcg/hr already for CPAP today AM Will start IV Precedex
[2019-05-07] MEDS: DexMEDEtomidine 400 MCG in D5W 5% 96 ML IV SCH (05:20)
[2019-05-07] MEDS: PIPERACILLIN-TAZOB 3.375GM 100 ML IV SCH ×3 (05:29→22:29)
--- NOTE | 2019-05-07 05:30 | NUR ---
TEMP ELEVATED Rectal temp 100.6F - cooling blanket on
[2019-05-07 06:19] LABS: Eosinophils % (manual) 1 (0-7); Monocytes % (manual) 1 (0-12)
[2019-05-07 06:20] LABS: Band Neutrophils % (manual) 14; Lymphocytes % (manual) 3 (10.0-50.0)
--- NOTE | 2019-05-07 08:45 | NUR ---
TEMPERATURE Patients temperature has reached 97.7: cooling measures have stopped, will continue to monitor patients temperature closely.
[2019-05-07] MEDS ORDERED: BUMETANIDE 2.5mg/10ml (0.25 mg/ml) INJ IV SCH (10:00)
[2019-05-07] MEDS: UREA 15gm PO Powder PKG PO SCH (10:01)
[2019-05-07] MEDS: ENOXAPARIN SOD 40 MG/0.4 ML SYRINGE SC SCH (10:01)
[2019-05-07] MEDS: FLUCONAZOLE 200MG/100ML 100 ML IV SCH (10:01)
[2019-05-07] MEDS: FAMOTIDINE (10MG/ML) 2ML VL IV SCH (10:01)
[2019-05-07] MEDS: PROPOFOL 100 ML IV SCH (12:33)
[2019-05-07] MEDS: fentaNYL Drip 2500mCg/250mlNS 250 ML IV SCH (12:33)
[2019-05-07] MEDS: MIDAZOLAM DRIP 50 mg/50mL 50 ML IV SCH (12:33)
[2019-05-07] MEDS: VANCOMYCIN 1,500 MG in D5W 5% 250 ML IV SCH (13:44)
[2019-05-07] MEDS: BUMETANIDE 2.5mg/10ml (0.25 mg/ml) INJ IV SCH (18:00)
[2019-05-07] MEDS: POTASSIUM EFFERVESENT TAB 25 MEQ GT SCH (18:00)
--- NOTE | 2019-05-07 19:20 | NUR ---
Opening Shift Note Assumed care of patient in room 110. Patient is intubated with no sedation. No S/S of distress/SOB or pain. Will continue to monitor for changes.
[2019-05-07] MEDS: NOREPINEPHRINE 8 MG/250ML KIT 250 ML IV SCH (21:25)
--- NOTE | 2019-05-07 22:00 | NUR ---
Large bowel movement completed full linen change and removed all soiled clothing.
[2019-05-08] VITALS (89 sets, daily range): BP systolic 80–127; BP diastolic 40–72
[2019-05-08] MEDS: VANCOMYCIN 1,500 MG in D5W 5% 250 ML IV SCH ×3 (02:05→23:41)
[2019-05-08] MEDS: ALBUTEROL SULF 2.5 MG/0.5ML(0.5%) NEB SOLN NEB SCH ×6 (02:20→22:30)
[2019-05-08] MEDS: IPRATROPIUM BROM 0.5 MG/2.5ML INH SOL NEB SCH ×6 (02:20→22:30)
[2019-05-08] MEDS: ACETYLCYSTEINE 20%(200MG/ML) SOL 4ML NEB SCH ×6 (02:21→22:30)
[2019-05-08 03:45] LABS: Basophils # (auto) 0 uL; Basophils % (auto) 0.3 % (0.0-2.0); Eosinophils # (auto) 0 uL; Eosinophils % (auto) 0.3 % (0.0-7.0); Hematocrit 35.3 % (41.0-53.0); Hemoglobin 12.2 g/dL (13.5-17.5); Lymphocytes # (auto) 0.4 uL; Lymphocytes % (auto) 3.4 % (10.0-50.0); Mean Corpuscular Hemoglobin 32.9 pg (28.0-32.0); Mean Corpuscular Hgb Conc. 34.4 g/dL (32.0-36.0); Mean Corpuscular Volume 95.6 fL (80.0-100.0); Monocytes # (auto) 0.3 uL; Monocytes % (auto) 2.5 % (0.0-12.0); Neutrophils # (auto) 10.2 uL; Neutrophils % (auto) 93.5 % (37.0-80.0); Platelet Count (auto) 230 10^3/uL (140-450); Red Cell Distribution Width 13.3 % (11.8-14.3); White Blood Cell 10.9 10^3/uL (4.4-10.8)
[2019-05-08 04:04] LABS: Potassium 3.3 mmol/L (3.5-5.1)
[2019-05-08 04:13] LABS: Albumin 1.5 g/dL (3.4-5.0); BUN/Creatinine Ratio 36.4; Bilirubin, Total 1.1 mg/dL (0.2-1.0); Calcium 7.6 mg/dL (8.5-10.1); Total Protein 6.1 g/dL (6.4-8.2)
[2019-05-08] MEDS: DexMEDEtomidine 400 MCG in D5W 5% 96 ML IV SCH (05:23)
--- NOTE | 2019-05-08 05:30 | NUR ---
ON THE PHONE UPDATED ON PATIENT'S OVERNIGHT CONDITION.
[2019-05-08] MEDS: LACTULOSE 20Gm/30ML SOLN PO SCH ×3 (06:00→12:00)
[2019-05-08] MEDS: POTASSIUM EFFERVESENT TAB 25 MEQ GT SCH ×2 (06:10→17:57)
[2019-05-08] MEDS: BUMETANIDE 2.5mg/10ml (0.25 mg/ml) INJ IV SCH ×2 (06:11→17:57)
[2019-05-08] MEDS: PIPERACILLIN-TAZOB 3.375GM 100 ML IV SCH ×3 (06:11→21:54)
--- NOTE | 2019-05-08 07:15 | NUR ---
REPORT RECEIVED FROM COMMUNITY HEALTH DIRECTOR NURSE. PATIENT RESTING IN BED AT THIS TIME INTUBATED WITH NO SEDATIONS. RESPIRATIONS EVEN AND UNLABORED. NO SIGNS OF ACUTE DISTRESS NOTED. BED IN LOW POSITION. WILL CONTINUE TO MONITOR.
[2019-05-08] MEDS: FLUCONAZOLE 200MG/100ML 100 ML IV SCH (09:23)
[2019-05-08] MEDS: ENOXAPARIN SOD 40 MG/0.4 ML SYRINGE SC SCH (09:23)
[2019-05-08] MEDS: FAMOTIDINE (10MG/ML) 2ML VL IV SCH (09:23)
[2019-05-08] MEDS ORDERED: POTASSIUM CHLORIDE 40 MEQ, LIDOCAINE 1% (LOCAL ANESTH.) 4 ML in SODIUM CHL 0.9% 100 ML IV ONE (11:45)
--- NOTE | 2019-05-08 11:46 | NUR ---
Nutrition Follow-up Notes Wt.: 100.7 kg today. Pt remains intubated, remains NPO, with EN support held for possible CPAP trial today. Pt's previously on Jevity 1.2 Alexsander @ 20 ml/hr providing 576 kcal, 27 gms pro, 387 ml free water. Noted pt's for active Cardiology consult. Est. Needs: 1850 kcal to 2350 kcal (20-25 kcal/kgBW), 74 gms to 93 gms pro (0.8-1.0 gms/kgBW). Will continue to monitor pertinent labs and reassess nutrient need prn Labs: Gluc 127 H, Na 133 L, K 3.3 L, Cl 93 L, CO2 35 H, BUN 32 H, Ca 7.6 L, Tot andreina 1.1 H, AST 82 H, ALT 76 H, Tpro 6.1 L, Alb 1.5 L Skin: Jose Antonio scale 12, mod risk, skin intact per documentation lead. GI: P had 1x BM this morning per documentation lead. PES: Increased nutrient needs r/t acute/chronic medical condition aeb intubated, sedated, severe hypoalbuminemia, NPO. Altered nutrition related lab values r/t current/chronic medical condition aeb hyponatremia, hypochloremia, elev. LFTs, hyperbilirubinemia, hypocalcemia and severe hypoalbuminemia Obesity r/t energy input more than body requirement [id number]% IBW, BMI 32.3 kg/m2 and increased body adiposity Will continue to monitor NPO status, EN tolerance, skin status, pertinent labs and weight trend. F/u in 2 to 3 days. Rec.: 1.)) Advance gradually to oral diet when medically appropriate. 2.) If still NPO with EN support, consider to resume EN support at lower rate with gradual increase on feeding rate of Jevity 1.2 Alexsander @ 70 ml/hr goal rate as tolerated when medically appropriate. 3.) If Albumin continues trending down, consider Prostat 1 pkt BID. 4.) Refer pt to RD for further nutrition education and weight monitoring upon discharge. 5.) Continue current plan of care.
--- NOTE | 2019-05-08 12:14 | NUR ---
DENTAL BILLING SPECIALIST ANATOLY AT BEDSIDE. SPOKE AT LENGTH WITH FAMILY; ALL QUESTIONS ANSWERED. EKG DONE AND SHOWN TO JAVAD LEDBETTER.
[2019-05-08] MEDS: MIDAZOLAM DRIP 50 mg/50mL 50 ML IV SCH (12:33)
[2019-05-08] MEDS: fentaNYL Drip 2500mCg/250mlNS 250 ML IV SCH (12:33)
[2019-05-08] MEDS: PROPOFOL 100 ML IV SCH (12:33)
[2019-05-08] MEDS ORDERED: POTASSIUM CHL 20MEQ/100ML 200 ML IV ONE (12:57)
[2019-05-08] MEDS: ACETAMINOPHEN 325 MG TAB PO PRN (13:00)
[2019-05-08] MEDS: POTASSIUM CHL 20MEQ/100ML 100 ML IV SCH ×2 (13:07→14:51)
--- NOTE | 2019-05-08 13:10 | NUR ---
DR SANTOS AT BEDSIDE TO ASSESS PATIENT AND DISCUSS PLAN OF CARE. PER MD CHECK BLOOD SUGARS Q4HRS
--- NOTE | 2019-05-08 14:44 | NUR ---
DR CENTENO AT BEDSIDE TO ASSESS PATIENT AND DISCUSS PLAN OF CARE WITH FAMILY. PER MD KEEP ALL SEDATIONS OFF PATIENT INCLUDING PRECEDEX. MD AWARE OF RR IN 30'S, PER MD OK TO CONTINUE AT THAT RATE.
--- NOTE | 2019-05-08 14:46 | NUR ---
DR JULIAN AT BEDSIDE TO ASSESS PATIENT AND DISCUSS PLAN OF CARE. ALL ORDERS NOTED IN CHART.
[2019-05-08] MEDS ORDERED: DEXTROSE (50%) 50ML SYRG IV PRN (15:45)
[2019-05-08] MEDS: ACCU-CHEK COMFORT CURVE STRIP VI SCH ×3 (18:09→23:47)
--- NOTE | 2019-05-08 19:30 | NUR ---
Opening Shift Note Assumed care of patient in room 110. Patient is intubated. No sedation currently running, monitoring patients neurological response. From report patient's RR is elevated. At the moment no S/S of distress/SOB or pain. Will continue to monitor for changes.
[2019-05-08] MEDS: NOREPINEPHRINE 8 MG/250ML KIT 250 ML IV SCH (21:25)
[2019-05-09] VITALS (86 sets, daily range): BP systolic 95–150; BP diastolic 55–85
[2019-05-09] MEDS: DexMEDEtomidine 400 MCG in D5W 5% 96 ML IV SCH (01:23)
[2019-05-09] MEDS: IPRATROPIUM BROM 0.5 MG/2.5ML INH SOL NEB SCH ×6 (02:30→22:24)
[2019-05-09] MEDS: ACETYLCYSTEINE 20%(200MG/ML) SOL 4ML NEB SCH ×6 (02:30→22:24)
[2019-05-09] MEDS: ALBUTEROL SULF 2.5 MG/0.5ML(0.5%) NEB SOLN NEB SCH ×6 (02:30→22:24)
[2019-05-09 03:59] LABS: Hemoglobin 11.9 g/dL (13.5-17.5); Mean Corpuscular Hemoglobin 33.4 pg (28.0-32.0); Mean Corpuscular Hgb Conc. 34.8 g/dL (32.0-36.0); Mean Corpuscular Volume 96.1 fL (80.0-100.0); Platelet Count (auto) 233 10^3/uL (140-450); Red Blood Cells 3.54 10^6/uL (4.5-5.90); Red Cell Distribution Width 13.4 % (11.8-14.3); White Blood Cell 9.6 10^3/uL (4.4-10.8)
[2019-05-09] MEDS: ACCU-CHEK COMFORT CURVE STRIP VI SCH ×5 (04:00→20:00)
[2019-05-09 04:12] LABS: Band Neutrophils % (manual) 0; Basophils % (manual) 0 (0.0-2.0); Blast Cells 0; Metamyelocytes % 0; Myelocytes % 0; Promyelocytes % 0; Reactive Lymphocytes 0
[2019-05-09 05:06] LABS: Calcium 7.8 mg/dL (8.5-10.1); Potassium 3.9 mmol/L (3.5-5.1)
[2019-05-09] MEDS: POTASSIUM EFFERVESENT TAB 25 MEQ GT SCH ×2 (05:22→18:00)
[2019-05-09] MEDS: PIPERACILLIN-TAZOB 3.375GM 100 ML IV SCH ×3 (05:24→22:00)
[2019-05-09] MEDS: BUMETANIDE 2.5mg/10ml (0.25 mg/ml) INJ IV SCH ×2 (05:28→18:50)
[2019-05-09 05:57] LABS: Eosinophils % (manual) 1 (0-7); Lymphocytes % (manual) 10 (10.0-50.0); Monocytes % (manual) 1 (0-12)
--- NOTE | 2019-05-09 07:00 | NUR ---
REPORT RECEIVED FROM DATABASE ADMINISTRATION ASSOCIATE NURSE. PATIENT RESTING IN BED AT THIS TIME INTUBATED AND SLOWLY BECOMING RESPONSIVE TO VOICE. PATIENT OPENS EYES TO VOICE, BUT STILL LETHARGIC. RESPIRATIONS EVEN BUT LABORED, RR 34 MD AWARE. BED IN LOW POSITION. WILL CONTINUE TO MONITOR.
[2019-05-09] MEDS: ACETAMINOPHEN 325 MG TAB PO PRN (08:08)
--- NOTE | 2019-05-09 08:08 | NUR ---
UPON ASSESSMENT PATIENT TEMP WAS 101.1. ADMINISTERED TYLENOL PER PROTOCOL AND APPLIED ICE PACKS TO UNDER ARMS. WILL CONTINUE TO MONITOR.
[2019-05-09 08:50] LABS: Hepatitis B Surface Antibody Negative
--- NOTE | 2019-05-09 09:15 | NUR ---
TEMP REASSESSED PATIENTS TEMP AFTER 1 HOUR POST TYLENOL. TEMP 101.2 F ORALLY. APPLIED MORE COOLING MEASURES TO PATIENT. WILL REASSESS.
[2019-05-09 09:16] LABS: Hepatitis A Total Antibody Negative
[2019-05-09] MEDS: FLUCONAZOLE 200MG/100ML 100 ML IV SCH (09:17)
[2019-05-09] MEDS: FAMOTIDINE (10MG/ML) 2ML VL IV SCH (09:17)
[2019-05-09] MEDS: ENOXAPARIN SOD 40 MG/0.4 ML SYRINGE SC SCH (09:17)
[2019-05-09 10:20] LABS: Hepatitis B Core Total AB Negative; Hepatitis B Surface Antigen Negative (Negative); Hepatitis C Antibody Negative (Negative)
[2019-05-09] MEDS: VANCOMYCIN 1,500 MG in D5W 5% 250 ML IV SCH (11:31)
--- NOTE | 2019-05-09 12:26 | NUR ---
DR CENTENO AT BEDSIDE TO ASSESS PATIENT AND DISCUSS PLAN OF CARE. PER WHEN PATIENT AWAKE CPAP TRIAL. Addendum: 05/09/19 at 1957 by Jessica Terry RN DECREASED PATIENTS PEEP TO 6 RESPIRATORY INFORMED OF CHANGES.
--- NOTE | 2019-05-09 12:26 | NUR ---
Respiratory note: PEEP WAS DECREASED TO PEEP OF 6 PER ORDERS.
--- NOTE | 2019-05-09 13:50 | NUR ---
Covering Primary RN Jessica for lunch coverage. Dr Meier at bedside speaking with family and updating them on plan of care. Pt remains intubated, and is awake and alert and following commands. Per Dr Meier, okay to start CPAP trial. Dr Ibarra at bedside as well, updating family on plan of care.
--- NOTE | 2019-05-09 14:15 | NUR ---
PATIENT PLACED ON CPAP TRIAL PER DR CENTENO AT BEDSIDE.
--- NOTE | 2019-05-09 14:15 | NUR ---
Dr Collado assessed pt and agrees with starting CPAP trial. RT paged and made aware. Now at bedside for start CPAP trial.
--- NOTE | 2019-05-09 14:15 | NUR ---
Respiratory note: PT WAS PLACED ON CPAP TRIAL. WEANING PARAMETERS AND ABG TO BE OBTAINED.
--- NOTE | 2019-05-09 15:32 | NUR ---
Respiratory note: WEANING PARAMETERS OBTAINED NIF -37.3, VC 850, RSBI 21, LEAK 200. ABG RESULTS GIVEN TO . PT WAS EXTUBATED PER.JACOBO ORDERS AND PLACED ON COOL MIST 40% 10L. NO STRIDOR NOTED. PT HAS A WEAK COUGH. BREATH SOUNDS ARE COARSE. HR 87, RR 24, POX 91%.
--- NOTE | 2019-05-09 15:32 | NUR ---
PATIENT EXTUBATED PER MD ORDER PLACED ON COOL MIST MASK 40%. SATURATIONS 93% WILL CONTINUE TO MONITOR.
--- NOTE | 2019-05-09 15:55 | NUR ---
RESPIRATORY STATUS CHANGE DR CENTENO AT BEDSIDE, PATIENT PLACED ON HIGH FLOW 60 LITERS 80%FIO2, SATURATIONS 88-92%. WILL CONTINUE TO MONITOR. PER MD BIPAP PRN / PRN IF HIGH FLOW DOES NOT IMPROVE RESPIRATORY STATUS.
--- NOTE | 2019-05-09 17:40 | NUR ---
RESPIRATORY STATUS CHANGE PATIENT CONTINUES TO HAVE INCREASED RR IN 30'S AND SATURATIONS 87-89%. PAGED RESPIRATORY THERAPIST AND PLACED PATIENT ON BIPAP PER MD ORDERS. SATURATIONS 93% ON 75% FIO2 WILL CONTINUE TO MONITOR.
--- NOTE | 2019-05-09 18:31 | NUR ---
RT NOTE PT RECEIVED ON HFNC, PT SPO2 WAS 88% ON 80% FIO2 WITH 60LPM FLOW. PT WAS HAVING AN HARD TIME BREATHING. RT PLACE PT ON BIPAP WITH DR ORDERED STARTING SETTINGS OF 12/7. RT HAD TO TITRATE THOSE SETTINGS FOR PT COMFORT AND PROPER OXYGENATION. THE CURRENT SETTINGS ARE 16/8 BUR 14 AND 65%.A CALL WAS PLACED INTO THE MD TO GET AUTHORIZATION FOR THOSE SETTINGS.
[2019-05-09] MEDS ORDERED: POTASSIUM CHL 20MEQ/100ML 100 ML IV ONE ×2 (18:45→18:46)
--- NOTE | 2019-05-09 19:35 | NUR ---
CHANGE IN STATUS PATIENT HEART RATE INCREASED TO 120'S SATURATIONS 90% ON 75% ON BIPAP. OBTAINED TEMP 102.8F AXILLARY. PLACED COOLING BLANKET AND RECTAL PROBE. PAGED COMPANY LAUNDRY WORKER HOSPITALIST FOR [place] TYLENOL PATIENT NO LONGER HAS OGT AFTER EXTUBATION. RECTAL TEMP 104.4 F. AWAITING CALL BACK. ORDERED ABG PER PROTOCOL DUE TO PATIENTS CURRENT RESPIRATORY STATUS.
--- NOTE | 2019-05-09 20:08 | NUR ---
SPOKE TO DR CENTENO ABOUT PATIENT CURRENT STATUS. PER MD CALL ER DR AND REINTUBATE PATIENT.
--- NOTE | 2019-05-09 20:12 | NUR ---
UPDATED ON PATIENT STATUS AND NEED FOR REINTUBATION. AGREED TO REINTUBATION OF PATIENT.
[2019-05-09] MEDS ORDERED: ACETAMINOPHEN 650 MG RECT SUPP PR PRN (20:15)
[2019-05-09] MEDS ORDERED: ETOMIDATE (2MG/ML) 20ML VIAL IV ONE (20:19)
[2019-05-09] MEDS ORDERED: SUCCINYLCHOLINE CHLORIDE 20 MG/ML 10ML VIAL IV ONE (20:20)
--- NOTE | 2019-05-09 20:30 | NUR ---
SPOKE TO DR ROBERSON THE TRANSCRIPTION COORDINATOR HOSPITALIST TO INFORM OF PATIENT STATUS CHANGE. INFORMED MD THAT DR CENTENO STATED PATIENT NEEDS TO BE REINTUBATED.
[2019-05-09] MEDS ORDERED: PROPOFOL 100 ML IV ONE ×2 (20:34→23:22)
--- NOTE | 2019-05-09 21:01 | NUR ---
KAROL KLINE AT BEDSIDE RE-INTUBATED PT. XRAY AND OGT COMPLETED.
[2019-05-09] MEDS ORDERED: MIDAZOLAM DRIP 50 mg/50mL 50 ML IV ONE (21:10)
[2019-05-09] MEDS: MIDAZOLAM DRIP 50 mg/50mL 50 ML IV SCH (21:24)
[2019-05-10] VITALS (104 sets, daily range): BP systolic 73–117; BP diastolic 34–89
[2019-05-10] MEDS ORDERED: PROPOFOL 100 ML IV ONE ×2 (02:27→05:30)
[2019-05-10] MEDS: ALBUTEROL SULF 2.5 MG/0.5ML(0.5%) NEB SOLN NEB SCH ×6 (02:30→22:20)
[2019-05-10] MEDS: ACETYLCYSTEINE 20%(200MG/ML) SOL 4ML NEB SCH ×6 (02:30→22:20)
[2019-05-10] MEDS: IPRATROPIUM BROM 0.5 MG/2.5ML INH SOL NEB SCH ×6 (02:30→22:20)
[2019-05-10 04:00] LABS: Basophils # (auto) 0 uL; Basophils % (auto) 0.2 % (0.0-2.0); Eosinophils # (auto) 0 uL; Eosinophils % (auto) 0.2 % (0.0-7.0); Hematocrit 34.8 % (41.0-53.0); Hemoglobin 11.8 g/dL (13.5-17.5); Lymphocytes # (auto) 0.5 uL; Lymphocytes % (auto) 3.3 % (10.0-50.0); Mean Corpuscular Hemoglobin 32.9 pg (28.0-32.0); Mean Corpuscular Hgb Conc. 33.9 g/dL (32.0-36.0); Mean Corpuscular Volume 96.8 fL (80.0-100.0); Monocytes # (auto) 0.4 uL; Monocytes % (auto) 2.4 % (0.0-12.0); Neutrophils # (auto) 13.8 uL; Neutrophils % (auto) 93.9 % (37.0-80.0); Platelet Count (auto) 217 10^3/uL (140-450); Red Cell Distribution Width 13.3 % (11.8-14.3); White Blood Cell 14.7 10^3/uL (4.4-10.8)
[2019-05-10] MEDS: ACCU-CHEK COMFORT CURVE STRIP VI SCH ×6 (04:00→20:00)
[2019-05-10 04:17] LABS: Calcium 8.1 mg/dL (8.5-10.1); Potassium 3.8 mmol/L (3.5-5.1)
[2019-05-10 04:27] LABS: BUN/Creatinine Ratio 28.6
[2019-05-10] MEDS: BUMETANIDE 2.5mg/10ml (0.25 mg/ml) INJ IV SCH (06:00)
[2019-05-10] MEDS: PIPERACILLIN-TAZOB 3.375GM 100 ML IV SCH (06:24)
[2019-05-10] MEDS: POTASSIUM EFFERVESENT TAB 25 MEQ GT SCH (06:24)
[2019-05-10] MEDS ORDERED: fentaNYL Drip 2500mCg/250mlNS 250 ML IV ONE (07:46)
[2019-05-10] MEDS: fentaNYL Drip 2500mCg/250mlNS 250 ML IV SCH (07:50)
--- NOTE | 2019-05-10 09:00 | NUR ---
HOLD P.T. BECAUSE PATIENT WAS INTUBATED.
[2019-05-10] MEDS: FAMOTIDINE (10MG/ML) 2ML VL IV SCH (10:19)
[2019-05-10] MEDS: ENOXAPARIN SOD 40 MG/0.4 ML SYRINGE SC SCH (10:19)
[2019-05-10] MEDS: FLUCONAZOLE 200MG/100ML 100 ML IV SCH (10:19)
[2019-05-10] MEDS: acetaZOLAMIDE SODIUM 500 MG VL IV SCH ×2 (10:23→22:20)
[2019-05-10] MEDS: PROPOFOL 100 ML IV SCH (12:00)
[2019-05-10] MEDS: VANCOMYCIN 1,500 MG in D5W 5% 250 ML IV SCH ×3 (12:15)
--- NOTE | 2019-05-10 13:30 | NUR ---
DR. THOMAS IN SPOKE TO ABOUT PLAN
--- NOTE | 2019-05-10 13:44 | NUR ---
Nutrition Follow-up Notes Wt.: 100.0 kg today. Pt remains intubated, with EN support to begin tonight with Jevity 1.2 Alexsander @ 30 ml/hr providing 864 kcal, 40 gms pro, 581 ml free water, with advancement every 4 hours as tolerated until 70 ml/hr goal reached. Est. Needs: 1850 kcal to 2350 kcal (20-25 kcal/kgBW), 74 gms to 93 gms pro (0.8-1.0 gms/kgBW). Will continue to monitor pertinent labs and reassess nutrient need prn Labs: Gluc 149 H, Na 133 L, Cl 95 L, CO2 35 H, BUN 26 H, Ca 8.1 L, Tot andreina 1.1 H, AST 82 H, ALT 76 H, Tpro 6.1 L, Alb 1.5 L Skin: Jose Antonio scale 12, mod risk, Left/Right heels blanched redness per call center representative. GI: Pt has BM every 3-4 hours per RN doc 05/09. PES: Increased nutrient needs r/t acute/chronic medical condition aeb intubated, sedated, severe hypoalbuminemia, TPN. Altered nutrition related lab values r/t current/chronic medical condition aeb hyponatremia, hypochloremia, elev. LFTs, hyperbilirubinemia, hypocalcemia and severe hypoalbuminemia Obesity r/t energy input more than body requirement [id number]% IBW, BMI 32.3 kg/m2 and increased body adiposity Will continue to monitor TPN status, EN tolerance, skin status, pertinent labs and weight trend. F/u in 2 to 3 days. Rec.: 1.)) Advance gradually to oral diet when medically appropriate. 2.) Consider to resume EN support at lower rate with gradual increase on feeding rate of Jevity 1.2 Alexsander @ 70 ml/hr goal rate as tolerated when medically appropriate. 3.) If Albumin continues trending down, consider Prostat 1 pkt BID. 4.) Refer pt to RD for further nutrition education and weight monitoring upon discharge. 5.) Continue current plan of care.
--- NOTE | 2019-05-10 13:45 | NUR ---
NG TUBE FEEDING STARTED AT 30ML/HR; GOAL IS 70 ML/HR. DR. PICKETT IN. UPDATED. WANTS CENTRAL LINE OUT AND PICC PLACED. SPOKEN TO AND ALL QUESTIONS ANSWERED. PICC RN PAGED AND WILL BE IN.
[2019-05-10] MEDS: Jevity 1.2 Cal/Fiber 1 Liter GT SCH (14:00)
--- NOTE | 2019-05-10 16:10 | NUR ---
PICC NURSE AT BEDSIDE
[2019-05-10 16:26] LABS: INR 1.15 (0.9-1.15)
--- NOTE | 2019-05-10 16:36 | NUR ---
PICC INSERTION IN PROGRESS
--- NOTE | 2019-05-10 16:55 | NUR ---
PCXR DONE FOR PLACEMENT. CENTRAL LINE LT IJ DC'D. CATH INTACT 2X2 OVER SITE. SITE CLEAN.
--- NOTE | 2019-05-10 17:01 | NUR ---
PICC line placement Patient/Patient significant other educated on need for PICC line placement. All risks and benefits explained and all questions and concerns addressed prior to procedure. Noted past medical history and allergies with no contraindications. INR and Plt counts within acceptable range. 5 fr PICC line inserted via brachial vein using [employer] US and Tip Location System. Sterile technique with maximum barrier precautions utilized. Blood return obtained from each of triple lumens and each flushed easily with NS using proper technique. PICC secured with Stat-lock; biodisc and occlusive dressing applied. Stat portable chest x-ray obtained for PICC tip placement.
[2019-05-10] MEDS: MIDAZOLAM DRIP 50 mg/50mL 50 ML IV SCH (21:24)
[2019-05-10] MEDS: LINEZOLID 600MG/300ML 300 ML IV SCH (22:20)
[2019-05-11] VITALS (100 sets, daily range): BP systolic 95–120; BP diastolic 40–72
[2019-05-11] MEDS: VANCOMYCIN 1,500 MG in D5W 5% 250 ML IV SCH ×2
[2019-05-11] MEDS: IPRATROPIUM BROM 0.5 MG/2.5ML INH SOL NEB SCH ×6 (02:23→22:07)
[2019-05-11] MEDS: ALBUTEROL SULF 2.5 MG/0.5ML(0.5%) NEB SOLN NEB SCH ×6 (02:23→22:07)
[2019-05-11] MEDS: ACETYLCYSTEINE 20%(200MG/ML) SOL 4ML NEB SCH ×6 (02:23→22:07)
[2019-05-11] MEDS: ACCU-CHEK COMFORT CURVE STRIP VI SCH ×6 (04:00→20:20)
[2019-05-11 04:12] LABS: Basophils # (auto) 0 uL; Basophils % (auto) 0.4 % (0.0-2.0); Eosinophils # (auto) 0.1 uL; Eosinophils % (auto) 1.1 % (0.0-7.0); Hematocrit 32.7 % (41.0-53.0); Hemoglobin 11.3 g/dL (13.5-17.5); Lymphocytes # (auto) 0.5 uL; Lymphocytes % (auto) 6.8 % (10.0-50.0); Mean Corpuscular Hemoglobin 33.7 pg (28.0-32.0); Mean Corpuscular Hgb Conc. 34.6 g/dL (32.0-36.0); Mean Corpuscular Volume 97.3 fL (80.0-100.0); Monocytes # (auto) 0.3 uL; Monocytes % (auto) 4.8 % (0.0-12.0); Neutrophils # (auto) 5.8 uL; Neutrophils % (auto) 86.9 % (37.0-80.0); Nucleated Red Blood Cells % 0.1 %; Platelet Count (auto) 213 10^3/uL (140-450); Red Blood Cells 3.36 10^6/uL (4.5-5.90); Red Cell Distribution Width 13.5 % (11.8-14.3); White Blood Cell 6.6 10^3/uL (4.4-10.8)
[2019-05-11 04:30] LABS: Albumin 1.8 g/dL (3.4-5.0); Calcium 7.8 mg/dL (8.5-10.1); Potassium 3.4 mmol/L (3.5-5.1)
[2019-05-11 04:35] LABS: BUN/Creatinine Ratio 32.9; Bilirubin, Total 0.7 mg/dL (0.2-1.0); Total Protein 6.9 g/dL (6.4-8.2)
[2019-05-11] MEDS: PROPOFOL 100 ML IV SCH ×2 (07:03→19:45)
--- NOTE | 2019-05-11 07:30 | NUR ---
ASSESS- PT. LYING IN BED ON VENT SIZE # 8.0, 24 THE LIP, AC-24, TV-450, PEEP-8, FIO2-60%. LUNGS CLEAR SHELBI. INSPIRATORY AND EXPIRATORY. PT. HAS GAG/COUGH REFLEX. PUPILS 2 AND BRISK SHELBI. SHELBI. HAND MITTENS TO PREVENT PULLING OF TUBES, PT. RESTLESS AND ANXIOUS, PULLING ARMS UP TOWARDS CHEST, MOVING LEGS ALL OVER IN BED. FENTANYL GTT. AT 150 MCG., INCREASED TO 170 MCG. FOR MORE SEDATION. ABD. SOFT, FLAT. BOWEL SOUNDS ALL FOUR QUADRANTS. OGT IN PLACE WITH JEVITY 1.2 AT 40 CC/HR. NO EMESIS. F/C TO GRAVITY WITH CLEAR YELLOW URINE. RADIAL PULSES STRONG, PALPABLE SHELBI. DORSALIS PEDAL PULSES STRONG, PALPABLE SHELBI. NO EDEMA. SCD'S SHELBI. LE. HEELS WITH ERYTHEMA SHELBI., BLANCHABLE. RECTAL PROBE IN PLACE, T-99.7. PICC EBEN TLC INTACT.
--- NOTE | 2019-05-11 09:15 | NUR ---
DR. OCONNOR Provider/Hospitalist at bedside. GAVE UPDATE ON PT. NEW ORDERS RECEIVED.
[2019-05-11] MEDS: ENOXAPARIN SOD 40 MG/0.4 ML SYRINGE SC SCH (09:35)
[2019-05-11] MEDS: LINEZOLID 600MG/300ML 300 ML IV SCH ×2 (09:35→21:41)
[2019-05-11] MEDS: FAMOTIDINE (10MG/ML) 2ML VL IV SCH (09:35)
[2019-05-11] MEDS: FLUCONAZOLE 200MG/100ML 100 ML IV SCH (09:35)
[2019-05-11] MEDS: BUMETANIDE 2.5mg/10ml (0.25 mg/ml) INJ IV SCH (09:36)
[2019-05-11] MEDS: POTASSIUM EFFERVESENT TAB 25 MEQ GT SCH (09:36)
[2019-05-11] MEDS: acetaZOLAMIDE SODIUM 500 MG VL IV SCH ×2 (09:59→21:41)
--- NOTE | 2019-05-11 10:00 | NUR ---
AUSCULTATED GOOD PLACEMENT WITH OGT. NO EMESIS. NO RESIDUAL. INCREASED TF TO 45 CC/HR. WITH GOAL RATE OF 70 CC/HR.
[2019-05-11] MEDS: fentaNYL Drip 2500mCg/250mlNS 250 ML IV SCH ×2 (10:32→13:37)
--- NOTE | 2019-05-11 10:35 | NUR ---
PT. TRANSPORTED VIA BED ON MANUFACTURING PRODUCTION MANAGER WITH PORTABLE VENT WITH JEFFRY, RT FOR CT CHEST WITHOUT CONTRAST. TF TURNED OFF. VSS.
--- NOTE | 2019-05-11 10:50 | NUR ---
RT Transport Note: Patient transported to CT with CHRIS EVANS. Patient transported to and from procedure on ventilator with previous ordered settings. Patient on corporate consultant with alarms set and audible, ambu-bag/mask connected to 02 tank. Patient returned to room with no adverse reaction noted. Transport completed without incident.
--- NOTE | 2019-05-11 11:00 | NUR ---
WOUND CARE NOTE: PATIENT IS BEING MONITORED FOR SKIN INTEGRITY BY WOUND CARE TEAM. PATIENT HAS CURRENT [place] SCORE OF 12. HE CONTINUES TO BE INTUBATED, SEDATED. HE CONTINUES TO BE WOUND FREE AT THIS TIME. GAVE TYRELL FOAM BOOTS TO BEDSIDE NURSE FOR APPLICATION ON PATIENT'S FEET/HEELS PREVENTATIVE. RECOMMEND: TYRELL FOAM BOOTS, CONTINUATION WITH ALL OTHER WOUND CARE ORDERS PREVIOUSLY PRESCRIBED BY MD. WOUND CARE TEAM WILL CONTINUE TO MONITOR.
--- NOTE | 2019-05-11 11:00 | NUR ---
PT. RETURNED FROM CT. ATTACHED TO MACHINE PECAN PICKER. RT ATTACHED PT. TO VENT.
--- NOTE | 2019-05-11 11:10 | NUR ---
PT. PLACED ON DROPLET PRECAUTIONS FOR MRSA SPUTUM.
--- NOTE | 2019-05-11 11:25 | NUR ---
Family updated on pt status Family of RONNIEELISEO updated on patient's status and condition. All questions and concerns addressed. verbalized understanding. VISITING AT THE BS.
--- NOTE | 2019-05-11 11:33 | NUR ---
Called/paged Dr. OCONNOR called re:. Waiting for call back. Continue care.
--- NOTE | 2019-05-11 11:35 | NUR ---
returned call Dr. OCONNOR returned call, updated on patient status and reason for call. Continue care.
--- NOTE | 2019-05-11 12:05 | NUR ---
Respiratory note: FiO2 TITRATED TO 45%. SPO2 98%, HR 78, BP 103/52. CHRIS EVANS NOTIFIED.
--- NOTE | 2019-05-11 12:45 | NUR ---
DR. GODDARD Provider/Hospitalist at bedside. GAVE UPDATE ON PT.
--- NOTE | 2019-05-11 15:20 | NUR ---
FEW CC RESIDUAL FROM OGT. NO EMESIS. PT. HAD BROWN SMEAR BM THIS AM. INCREASED TF OF JEVITY TO 50 CC/HR.
--- NOTE | 2019-05-11 15:25 | NUR ---
TECH AT BS FOR 2D ECHO.
--- NOTE | 2019-05-11 18:15 | NUR ---
TEMP 100.4 RECTALLY. TURNED ON COOLING BLANKET UNDER PT. AND PLACED OVER PT'S. CHEST WITH SHEET IN BETWEEN. MONITORING TEMP.
[2019-05-11] MEDS: ACETAMINOPHEN 650 MG RECT SUPP PR PRN (18:20)
--- NOTE | 2019-05-11 18:20 | NUR ---
TEMP 101.7 RECTALLY WITH COOLING BLANKET ON PT. GAVE TYLENOL SUPPOSITORY 650 MG. DC. MONITORING TEMP.
--- NOTE | 2019-05-11 20:10 | NUR ---
AGITATION/SEDATION PATIENT IS VERY AGITATED, SITTING ON THE BED, REMOVED THE MITTENS AND TRYING TO REMOVE ETT. PATIENT IS AWAKE ALERT, FOLLOWS COMMANDS BUT VERY ANXIOUS. EXPLAINED THE PLAN OF CARE BUT PATIENT DOESN'T CALM DOWN. WHILE THIS RN WAS HOLDING THE PATIENT REQUESTED THE CHARGE NURSE TO START PATIENT ON PROPOFOL DRIP TO PREVENT EXTUBATION. STAYED WITH THE PATIENT FOR ANOTHER 15 MINUTES TILL PATIENT CALM DOWN.
[2019-05-11] MEDS: MIDAZOLAM DRIP 50 mg/50mL 50 ML IV SCH (21:24)
[2019-05-12] VITALS (100 sets, daily range): BP systolic 97–177; BP diastolic 52–117
--- NOTE | 2019-05-12 01:00 | NUR ---
Patient bathe/linen change Patient given complete bath with chlorhexidine wipes. Skin integrity assessed for any changes. Linens changed. Patient repositioned for comfort.
[2019-05-12] MEDS: PROPOFOL 100 ML IV SCH ×2 (01:27→09:48)
[2019-05-12] MEDS: ALBUTEROL SULF 2.5 MG/0.5ML(0.5%) NEB SOLN NEB SCH ×6 (02:04→22:13)
[2019-05-12] MEDS: IPRATROPIUM BROM 0.5 MG/2.5ML INH SOL NEB SCH ×6 (02:04→22:14)
[2019-05-12] MEDS: ACETYLCYSTEINE 20%(200MG/ML) SOL 4ML NEB SCH ×6 (02:04→22:14)
[2019-05-12] MEDS: ACCU-CHEK COMFORT CURVE STRIP VI SCH ×6 (04:40→20:00)
--- NOTE | 2019-05-12 06:17 | NUR ---
Respiratory note: TITRATED FIO2 TO 35%, RN INFORMED.
--- NOTE | 2019-05-12 07:30 | NUR ---
REPORT REPORT RECEIVED FROM THE NIGHT RNAMANDA. PT RESTING IN BED WITH VSS AND NO DISTRESS NOTED. CONTINUE TO MONITOR.
--- NOTE | 2019-05-12 08:20 | NUR ---
ASSESSMENT PT IN BED IN DROPLET PRECAUTIONS FOR +MRSA AND ELIZABET IN THE SPUTUM. ON THE VENTILATOR BUT LIGHTLY SEDATED FOR CPAP TRIAL ORDERED FOR TODAY. PT WITH RECTAL TEMP OF 100.3 AND WITH COOLING BLANKET IN PLACE UNDER PATIENT. SEDATED ON FENTANYL AT 25 MCG AND PROPOFOL AT 10 MCG. OPENS EYES TO NAME AND FOLLOWS SIMPLE COMMANDS BUT A BIT RESTLESS AT TIMES. VENT SETTINGS: : 8 FR ETT/24 AT THE LIP, TV 450, AC 24, 35% AND PEEP OF 7. LUNGS CLEAR THROUGHOUT. 99% O2 SAT. TELE SR 88.. PALPABLE PULSES TO ALL EXTREMITIES. SCDS TO BLE. FEET AND HANDS SLIGHTLY COOL TO THE TOUCH. ABD SOFT WITH HYPOACTIVE BOWEL SOUNDS. LAST BM WAS 12-15. ALVARADO CATHETER DRAINING CLEAR YELLOW URINE. TURNED FOR COMFORT TO HIS LEFT SIDE. BACK AND SACRAL AREA ARE CLEAR OF ANY BREAKDOWN. 3 LUMEN PICC LINE TO HIS RUE, SITE BENIGN.
--- NOTE | 2019-05-12 09:31 | NUR ---
/JACOBO SPOKE WITH DR CENTENO BY PHONE AND ASKED IF HE WANTED TO PROCEED WITH SCHEDULED CPAP PT WITH 102 TEMP AT CHANGE OF SHIFT LAST NIGHT AND IS NOW 100.3 RECTALLY. ALSO ASKED IF HE WANTED A CXR, ABG OR LABS FOR THIS MORNING. HE DECIDED THAT HE WILL COME OVER AND ASSESS THE PT BEFORE MAKING A DECISION ABOUT THE CPAP TRIAL. HE ESTIMATED THAT HE WILL BE HERE AROUND NOON.
[2019-05-12] MEDS: POTASSIUM EFFERVESENT TAB 25 MEQ GT SCH (09:47)
[2019-05-12] MEDS: ENOXAPARIN SOD 40 MG/0.4 ML SYRINGE SC SCH (09:48)
[2019-05-12] MEDS: BUMETANIDE 2.5mg/10ml (0.25 mg/ml) INJ IV SCH (09:48)
[2019-05-12] MEDS: FLUCONAZOLE 200MG/100ML 100 ML IV SCH (09:48)
[2019-05-12] MEDS: FAMOTIDINE (10MG/ML) 2ML VL IV SCH (09:48)
[2019-05-12] MEDS: acetaZOLAMIDE SODIUM 500 MG VL IV SCH ×2 (09:50→22:03)
--- NOTE | 2019-05-12 10:30 | NUR ---
FAMILY INTO THE BEDSIDE AND UPDATED ON THE PT'S CURRENT CONDITION.
--- NOTE | 2019-05-12 10:35 | NUR ---
Assessment Pt is a 59 yr old intubated male. Pt's , Nicole, was bedside and answered questions on pt's behalf. Pt lives with , in an RV, pt's contact # is [phone]. Prior to admit, pt was ambulatory, and independent with ADL's. Pt admitted due to sepsis. 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 SW educated pt's about IHSS and getting medical transport for future doctor's appointments if unable to to get family to assist her. No needs identified. SW will further assess for pt's needs closer to d/c. Addendum: 05/12/19 at 1036 by BLAINE CASAS Amended: Links added.
--- NOTE | 2019-05-12 10:55 | NUR ---
MD/FAMILY DR PICKETT INTO THE BEDSIDE AND UPDATED ON THE PT'S CURRENT CONDITION AND THAT DR CENTENO STATED HE WILL BE IN AROUND NOON AND ASSESS THE PT AND DECIDE IF HE WANTS THE PT TO HAVE A CPAP TRIAL. DR PICKETT SPOKE WITH THE PT'S WHO WAS AT THE BEDSIDE.
[2019-05-12] MEDS ORDERED: POTASSIUM CHL 20MEQ/100ML 100 ML IV ONE (11:00)
--- NOTE | 2019-05-12 11:19 | NUR ---
Nutrition Follow-up Notes Wt.: 93.1 kg today. Noted 6.9 kg weight loss in last 2 days likely d/t ? fluid loss aeb negative I & Os for past few days. Pt's in isolation room, remains intubated, no immediate family member at bedside when rounded earlier. Pt's currently sedated with Propofol @ 6 m/hr providing 159 kcal from Fat. Pt's currently NPO off from EN support, however likely to resume oral diet with order for Jevity 1.2 Alexsander @ 30 ml/hr providing 864 kcal, 40 gms pro, 581 ml free water. Est. Needs: 1850 kcal to 2350 kcal (20-25 kcal/kgBW), 74 gms to 93 gms pro (0.8-1.0 gms/kgBW). Will continue to monitor pertinent labs and reassess nutrient need prn Labs: POC Gluc 77 wnl; 05/01/19 Na 134 L, K 3.4 L, BUN 27 H, Ca 7.8 L; Tpro 6.1 L, Alb 1.5 L Skin: Jose Antonio scale 12, mod risk, Left/Right heels blanched redness per certified nuclear medicine technologist. Pls refer to latest inventory worker's notes for further details re: tx plans. GI: Pt had 1 BM 05/01/19 per certified nuclear medicine technologist. PES: Increased nutrient needs r/t acute/chronic medical condition aeb intubated, sedated, severe hypoalbuminemia, TPN. Altered nutrition related lab values r/t current/chronic medical condition aeb hyponatremia, hypochloremia, elev. LFTs, hyperbilirubinemia, hypocalcemia and severe hypoalbuminemia Obesity r/t energy input more than body requirement [id number]% IBW, BMI 32.3 kg/m2 and increased body adiposity Will continue to monitor NPO status, EN tolerance, skin status, pertinent labs and weight trend. F/u in 2 to 3 days. Rec.: 1.) If still NPO, consider to resume EN support at lower rate with gradual increase on feeding rate of Jevity 1.2 Alexsander @ 70 ml/hr goal rate as tolerated if medically appropriate. 2.) If Albumin continues trending down, consider Prostat 1 pkt BID. 3.) Advance gradually to oral diet when medically appropriate. 4.) Refer pt to RD for further nutrition education and weight monitoring upon discharge. 5.) Continue current plan of care.
[2019-05-12] MEDS: fentaNYL Drip 2500mCg/250mlNS 250 ML IV SCH (11:30)
--- NOTE | 2019-05-12 11:45 | NUR ---
Respiratory note: TITRATED FIO2 TO 30%, CHRIS CASTRO INFORMED.
[2019-05-12] MEDS: LINEZOLID 600MG/300ML 300 ML IV SCH ×2 (12:36→22:05)
--- NOTE | 2019-05-12 14:08 | NUR ---
MD VISIT PT SEEN AND EXAMINED BY DR CENTENO AND SEDATION TURNED OFF. CPAP TRIAL STARTED. ABG TO BE DRAWN IN ONE HOUR.
--- NOTE | 2019-05-12 14:08 | NUR ---
Respiratory note: CPAP TRIAL INITIATED HR 98, SPO2 96%, BP 116/73, RR 28.
--- NOTE | 2019-05-12 14:15 | NUR ---
PT SLIDING DOWN IN BED. PULLED UP AND REMINDED PT TO STAY CALM AND TAKE SLOW DEEP BREATHS. CONTINUE TO MONITOR.
--- NOTE | 2019-05-12 14:35 | NUR ---
RR AT 40. ENCOURAGED THE PT TO SLOW HIS BREATHING AND IMAGINE HIMSELF IN SOMEWHERE HE LOVES. HE WAS ABLE TO BRING THE RR DOWN TO 26 AND THEN 22. DAUGHTER AT BEDSIDE FOR PT BENEFIT. CONTINUE TO MONITOR.
--- NOTE | 2019-05-12 15:00 | NUR ---
RECTAL TEMP UP TO 100.0 AND RESTARTED COOLING BLANKET WITH GOAL TEMP OF 98.0. CONTINUE TO MONITOR.
--- NOTE | 2019-05-12 15:30 | NUR ---
ABG RESULTS/WEANING PARAMETERS CALLED DR CENTENO AND LEFT A MESSAGE WITH PT'S ABG RESULTS POST CPAP TRIAL AND WEANING PARAMETERS AND THAT PT CURRENTLY WITH A RECTAL TEMP OF 100.0 WITH COOLING BLANKET TURNED BACK ON.
--- NOTE | 2019-05-12 15:58 | NUR ---
Respiratory note: EXTUBATED PATIENT AND PLACED ON 40% COOL MIST, NO STRIDOR HEARD, SPO2 93%. CHRIS CASTRO AT BEDSIDE.
[2019-05-12] MEDS ORDERED: BUMETANIDE 2.5mg/10ml (0.25 mg/ml) INJ IV ONE (16:15)
--- NOTE | 2019-05-12 18:30 | NUR ---
PT REMAINS IN CHAIR POSITION IN THE BED. DENIES ANY PAIN OR SOB, LUNGS STILL SOUNDING A BIT COARSE. UOP OF 2200 FOR THE SHIFT. CONTINUE TO MONITOR.
--- NOTE | 2019-05-12 19:40 | NUR ---
REPORT REPORT GIVEN TO SUMA LEVINE. Addendum: 05/12/19 at 2019 by Abbey David RN INFORMED ABNER THAT PT'S REQUESTING TO BE CALLED IF ANY CHANGE IN THE PT'S CONDITION.
--- NOTE | 2019-05-12 19:45 | NUR ---
OPEN NOTES Received patient awake,alert,watching TV. Oriented to person, knows his birthday. He said the year was 1996. Re-oriented patient to place, time and situation. Patient is cooperative, helps with turning. Febrile. Rectal temp 100.8F - will do cooling measures HR 100-106/min, BP stable. Extubated today. On nasal cannula 2L/min. Lung sounds coarse. Able to cough but no phlegm coming out. Able to use oral suction. Barbosa catheter in place - clear yellowish urine Right upper arm PICC line -dressing dry and intact.saline flushed. Full assessment done-refer interventions.will continue to monitor
--- NOTE | 2019-05-12 19:50 | NUR ---
TEMP ELEVATED PATIENT'S TEMP 100.8 F DESPITE ON COOLING BLANKET SPONGE BATH DONE. LINENS CHANGED. ICE PACKS APPLIED ON BOTH AXILLA COLD COMPRESS ON FOREHEAD WILL CONTINUE TO MONITOR
--- NOTE | 2019-05-12 20:30 | NUR ---
RESPIRATORY SATURATION 88-89% LUNG SOUNDS COARSE, MOIST COUGH NO PHLEGM COMING OUT INCREASED NC TO 3L/MIN
[2019-05-12] MEDS: MIDAZOLAM DRIP 50 mg/50mL 50 ML IV SCH (20:55)
--- NOTE | 2019-05-12 21:00 | NUR ---
RESPIRATORY SATURATIONS 94-97% AFTER INCREASED O2 STILL MOIST COUGH WILL CONTINUE TO MONITOR
--- NOTE | 2019-05-12 21:30 | NUR ---
TEMP RE-ASSESS PATIENT'S TEMP STILL 100.6F WILL GIVE SUPP ACETAMINOPHEN
[2019-05-12] MEDS: ACETAMINOPHEN 650 MG RECT SUPP PR PRN (21:35)
--- NOTE | 2019-05-12 23:30 | NUR ---
TEMP NOW 100.1F WILL CONTINUE TO MONITOR
[2019-05-13] VITALS (32 sets, daily range): BP systolic 103–136; BP diastolic 60–81
--- NOTE | 2019-05-13 00:05 | NUR ---
ROUNDS Encouraged patient to get some rest, try to sleep. He said he will. VS stable. will continue to monitor
[2019-05-13] MEDS: ACCU-CHEK COMFORT CURVE STRIP VI SCH ×5 (00:48→18:00)
[2019-05-13] MEDS: ALBUTEROL SULF 2.5 MG/0.5ML(0.5%) NEB SOLN NEB SCH ×6 (02:13→22:15)
[2019-05-13] MEDS: IPRATROPIUM BROM 0.5 MG/2.5ML INH SOL NEB SCH ×6 (02:13→22:15)
[2019-05-13] MEDS: ACETYLCYSTEINE 20%(200MG/ML) SOL 4ML NEB SCH ×6 (02:14→22:15)
[2019-05-13 04:01] LABS: Basophils # (auto) 0.1 uL; Basophils % (auto) 0.7 % (0.0-2.0); Eosinophils # (auto) 0 uL; Eosinophils % (auto) 0.1 % (0.0-7.0); Hematocrit 34.6 % (41.0-53.0); Hemoglobin 12.1 g/dL (13.5-17.5); Lymphocytes % (auto) 11.3 % (10.0-50.0); Mean Corpuscular Hemoglobin 33.5 pg (28.0-32.0); Mean Corpuscular Hgb Conc. 34.9 g/dL (32.0-36.0); Mean Corpuscular Volume 95.9 fL (80.0-100.0); Monocytes # (auto) 0.7 uL; Monocytes % (auto) 7.8 % (0.0-12.0); Neutrophils # (auto) 7.2 uL; Neutrophils % (auto) 80.1 % (37.0-80.0); Platelet Count (auto) 261 10^3/uL (140-450); Red Blood Cells 3.61 10^6/uL (4.5-5.90)
[2019-05-13 04:16] LABS: Potassium 3.5 mmol/L (3.5-5.1)
[2019-05-13 04:23] LABS: BUN/Creatinine Ratio 36.1; Calcium 8.3 mg/dL (8.5-10.1)
--- NOTE | 2019-05-13 05:00 | NUR ---
HYGIENE PATIENT CLEANED WITH CHG WIPES. LINENS CHANGED. SKIN ASSESSED. REPOSITIONED FOR COMFORT
--- NOTE | 2019-05-13 05:40 | NUR ---
Family updated on pt status of ELISEO TRUJILLO called. correct password provided. updated on patient's status and condition. All questions and concerns addressed. verbalized understanding.
--- NOTE | 2019-05-13 07:18 | NUR ---
REPORT REPORT GIVEN TO CHRIS CASTRO
--- NOTE | 2019-05-13 08:03 | NUR ---
ASSESSMENT PT AWAKE AND A/O TO PERSON , PLACE AND TIME. ABLE TO HELP REPOSITION HIMSELF IN BED. LUNGS COARSE THROUGHOUT. ON O2 AT 3 L/M VIA NC WITH O2 SAT OF 97%. TELE SR 88 WITH FIRST DEGREE AV BLOCK . PALPABLE PULSES TO ALL EXTREMITIES. SCDS TO BLE AND TYRELL BOOTS TO BLE DUE TO PINK BLANCHABLE HEELS. KNEES , FEET AND HANDS COOL TO THE TOUCH. APPLIED SOCKS. ABD SOFT WITH HYPOACTIVE BOWEL SOUNDS . ALVARADO CATHETER DRAINING CLEAR DARK YELLOW URINE. BACK AND SACRUM CLEAR O ANY BREAKDOWN. TURNED FOR COMFORT . DENIES ANY PAIN OR SOB.
[2019-05-13] MEDS: FLUCONAZOLE 200MG/100ML 100 ML IV SCH (09:26)
[2019-05-13] MEDS: POTASSIUM EFFERVESENT TAB 25 MEQ GT SCH (10:00)
--- NOTE | 2019-05-13 10:00 | NUR ---
GIVEN SCHEDULED MEDS EXCEPT FOR ORAL POTASSIUM PT HAD COUGHING WITH ICE CHIPS ON THE EMS INSTRUCTOR. AWAITING A SWALLOW EVALUATION.
[2019-05-13] MEDS: acetaZOLAMIDE SODIUM 500 MG VL IV SCH (10:08)
[2019-05-13] MEDS: FAMOTIDINE (10MG/ML) 2ML VL IV SCH (10:08)
[2019-05-13] MEDS: ENOXAPARIN SOD 40 MG/0.4 ML SYRINGE SC SCH (10:08)
[2019-05-13] MEDS: BUMETANIDE 2.5mg/10ml (0.25 mg/ml) INJ IV SCH (10:09)
--- NOTE | 2019-05-13 11:25 | NUR ---
MD VISIT PT SEEN BY DR CENTENO. UPDATED HIM ON THE PT'S CURRENT CONDITION AND TEMP OF 100.6 . HE WANTS PHYSIAL THERAPY TO GET THE PT OOB TO THE CHAIR AND ALSO FOR THE PT TO HAVE A SWALLOW EVALUATION. ORDERS PLACED.
[2019-05-13] MEDS: LINEZOLID 600MG/300ML 300 ML IV SCH ×2 (11:30→22:01)
--- NOTE | 2019-05-13 11:30 | NUR ---
REPOSITIONED PT IN THE CHAIR AND PLACED INTO THE CARDIAC CHAIR POSITION.
--- NOTE | 2019-05-13 15:44 | NUR ---
SWALLOW EVALUATED WITH FAMILY PRESENT. PATIENT HAS SOME MISSING TEETH. PATIENT COUGHED ON INTRODUCTION OF PUREE TEXTURE AND TRIAL OF HONEY THICKENED LIQUIDS. PATIENT IS UNSAFE FOR PO INTAKE AT THIS TIME. NURSING NOTIFIED.
[2019-05-13] MEDS: InsuLIN REG 1unit/0.01ml Soln (100units/ml) SC SCH (16:30)
[2019-05-13] MEDS ORDERED: TPN PER PHARMACY 0 ML IV SCH (17:00)
--- NOTE | 2019-05-13 17:00 | NUR ---
PAGED DR PICKETT AND MADE HIM AWARE OF FAILED SWALLOW EVALUATION. ORDER RECEIVED FOR TPN.
[2019-05-13] MEDS ORDERED: DEXTROSE (50%) 50ML SYRG IV SCH (17:15)
--- NOTE | 2019-05-13 17:30 | NUR ---
PT REPOSITIONED FOR COMFORT. RECTAL TEMP OF 100.6. ICE PACKS IN PLACE AND GIVEN CHG WIPE DOWN.
--- NOTE | 2019-05-13 18:50 | NUR ---
PT RESTING IN BED, WATCHING TV WITH HIS DAUGHTER. HE DENIES ANY PAIN OR SOB. RECTAL TEMP OF 100.4. REMAINS NPO.
--- NOTE | 2019-05-13 19:34 | NUR ---
REPORT REPORT GIVEN TO ABNER MOISE RN.
[2019-05-13] MEDS ORDERED: AMINO ACID INFUSION IN D10W 1,000 ML IV NR (20:00)
--- NOTE | 2019-05-13 22:35 | NUR ---
Family updated on pt status DAUGHTER of ELISEO TRUJILLO called,correct password provided. updated on patient's status and condition. All questions and concerns addressed. verbalized understanding.
--- NOTE | 2019-05-13 22:40 | NUR ---
BATH Patient requested to have a bath. Sponge bath done. Hair washed with shampoo shower cap. Linens changed. Repositioned. Patient brushed his teeth.
[2019-05-14] VITALS (53 sets, daily range): BP systolic 99–123; BP diastolic 61–81
--- NOTE | 2019-05-14 | NUR ---
ROUNDS Patient is still not sleeping. encouraged to try to sleep. He said he will try
[2019-05-14] MEDS: ACCU-CHEK COMFORT CURVE STRIP VI SCH ×5 (00:03→23:44)
[2019-05-14] MEDS: IPRATROPIUM BROM 0.5 MG/2.5ML INH SOL NEB SCH ×6 (01:47→22:09)
[2019-05-14] MEDS: ALBUTEROL SULF 2.5 MG/0.5ML(0.5%) NEB SOLN NEB SCH ×6 (01:47→22:09)
[2019-05-14] MEDS: ACETYLCYSTEINE 20%(200MG/ML) SOL 4ML NEB SCH ×6 (01:47→22:09)
[2019-05-14 04:07] LABS: Basophils # (auto) 0.1 uL; Basophils % (auto) 1.3 % (0.0-2.0); Eosinophils # (auto) 0 uL; Eosinophils % (auto) 0.5 % (0.0-7.0); Hematocrit 34.5 % (41.0-53.0); Hemoglobin 11.8 g/dL (13.5-17.5); Lymphocytes % (auto) 13.6 % (10.0-50.0); Mean Corpuscular Hemoglobin 32.8 pg (28.0-32.0); Mean Corpuscular Hgb Conc. 34.2 g/dL (32.0-36.0); Mean Corpuscular Volume 96.1 fL (80.0-100.0); Monocytes # (auto) 0.7 uL; Monocytes % (auto) 10.1 % (0.0-12.0); Neutrophils # (auto) 5.2 uL; Neutrophils % (auto) 74.5 % (37.0-80.0); Nucleated Red Blood Cells % 0.1 %; Platelet Count (auto) 304 10^3/uL (140-450); Red Blood Cells 3.59 10^6/uL (4.5-5.90); Red Cell Distribution Width 12.9 % (11.8-14.3)
[2019-05-14 04:23] LABS: Albumin 2.3 g/dL (3.4-5.0); Calcium 8.3 mg/dL (8.5-10.1); Magnesium 2.3 mg/dL (1.6-2.6); Potassium 3.1 mmol/L (3.5-5.1)
[2019-05-14 04:29] LABS: BUN/Creatinine Ratio 40.2; Bilirubin, Total 0.6 mg/dL (0.2-1.0); Pre Albumin 12.6 mg/dL (20.0-40.0); Total Protein 8.2 g/dL (6.4-8.2)
[2019-05-14] MEDS ORDERED: POTASSIUM CHL 20MEQ/100ML 100 ML IV ONE (04:45)
--- NOTE | 2019-05-14 05:10 | NUR ---
Family updated on pt status of ELISEO TRUJILLO called , correct password provided. updated on patient's status and condition. All questions and concerns addressed. verbalized understanding.
[2019-05-14] MEDS: InsuLIN REG 1unit/0.01ml Soln (100units/ml) SC SCH ×5 (06:00→23:44)
--- NOTE | 2019-05-14 07:10 | NUR ---
OPENING NOTE SHIFT REPORT RECEIVED AND ASSUMED CARE OF PT FROM ABNER PEREZ
[2019-05-14] MEDS: POTASSIUM EFFERVESENT TAB 25 MEQ GT SCH (10:00)
[2019-05-14] MEDS: POTASSIUM CHL 20MEQ/100ML 100 ML IV SCH ×4 (10:33→17:06)
[2019-05-14] MEDS: ENOXAPARIN SOD 40 MG/0.4 ML SYRINGE SC SCH (10:34)
[2019-05-14] MEDS: FAMOTIDINE (10MG/ML) 2ML VL IV SCH (10:34)
[2019-05-14] MEDS: BUMETANIDE 2.5mg/10ml (0.25 mg/ml) INJ IV SCH (10:34)
[2019-05-14] MEDS: FLUCONAZOLE 200MG/100ML 100 ML IV SCH (10:37)
[2019-05-14] MEDS: LINEZOLID 600MG/300ML 300 ML IV SCH ×2 (10:37→22:04)
--- NOTE | 2019-05-14 11:32 | NUR ---
Nutrition Follow-up Notes (new PN) Wt.: 89.0 kg Pt's extubated 05/12, sleeping, no immediate family member at bedside when rounded earlier. per records pt failed ST eval. pt is currently NPO initiated on PN support from last night @ 42 ml/hr providing 510 kcals and 42.5 gm proteins. pt with inadequate PN support as it meets 21-27% kcals and 45-565 proteins Est. Needs: 1850 kcal to 2350 kcal (20-25 kcal/kgBW), 74 gms to 93 gms pro (0.8-1.0 gms/kgBW). Will continue to monitor pertinent labs and reassess nutrient need prn Labs: GLU 123 H, BUN 33 H, ALB 2.3 L, PREALB 12.6 L, TG 161 H Skin: Jose Antonio scale 16, mod risk, Left/Right heels blanched redness per legal secretary receptionist. Pls refer to latest fast food shift lead's notes for further details re: tx plans. GI: Pt had 1 BM 05/01/19 per legal secretary receptionist. PES: Increased nutrient needs r/t acute/chronic medical condition aeb intubated, sedated, severe hypoalbuminemia, TPN. Altered nutrition related lab values r/t current/chronic medical condition aeb hyponatremia, hypochloremia, elev. LFTs, hyperbilirubinemia, hypocalcemia and severe hypoalbuminemia Obesity r/t energy input more than body requirement [id number]% IBW, BMI 32.3 kg/m2 and increased body adiposity Will continue to monitor NPO status, pN tolerance, skin status, pertinent labs and weight trend. F/u in 2 to 3 days. Rec.: 1.) advance PN support to meet > 75% of needs. 2) resume EN support at lower rate with gradual increase on feeding rate of Jevity 1.2 Alexsander @ 70 ml/hr goal rate as tolerated if medically appropriate. 2.) If Albumin continues trending down, consider Prostat 1 pkt BID. 3.) Advance gradually to oral diet when medically appropriate. 4.) Refer pt to RD for further nutrition education and weight monitoring upon discharge. 5.) Continue current plan of care.
--- NOTE | 2019-05-14 14:00 | NUR ---
DR. PICKETT AT BEDSIDE ORDERS RECEIVED
--- NOTE | 2019-05-14 14:20 | NUR ---
LARGE BM SOFT BROWN. LINENS CHANGED
--- NOTE | 2019-05-14 14:40 | NUR ---
CONTACTED PHYSICAL THERAPY FOR PT CONSULT AND SPEECH THERAPIST FOR SWALLOW EVAL. PHYSICAL THERAPIST STATES SPEECH THERAPIST WILL ARRIVE IN 30-60 MINUTES AND PHYSICAL THERAPIST SHOULD BE UP TO UNIT IN SOMETIME SOON
--- NOTE | 2019-05-14 15:07 | NUR ---
D/C'D ALVARADO CATHETER. PT TOLERATED WELL
--- NOTE | 2019-05-14 15:20 | NUR ---
SPEECH THERAPIST AT BEDSIDE SWALLOW EVAL DONE
--- NOTE | 2019-05-14 16:00 | NUR ---
PHYSICAL THERAPIST AT BEDSIDE. PT IS ABLE TO TOLERATE SITTING IN CHAIR AT BEDSIDE. WILL CONTINUE TO MONITOR
--- NOTE | 2019-05-14 19:00 | NUR ---
Opening note Assumed care of patient at this time. Report received from day shift RN, room check complete. POC reviewed with patient. Head to toe assessment complete, see intervention spreadsheet for complete details. Received pt alert and oriented, follows commands. VSS. Urinal at bedside. IV site benign. Call light within reach. Received pt on Droplet precautions. Bed locked and in lowest position, safety precautions in place. Will monitor pt carefully.
--- NOTE | 2019-05-14 19:05 | NUR ---
CLOSING NOTE SHIFT REPORT GIVEN AND CARE ENDORSED TO PIETER PEREZ
[2019-05-14] MEDS ORDERED: TPN PER PHARMACY IV NR ×10 (20:00)
--- NOTE | 2019-05-14 20:11 | NUR ---
Dinner Pt given jello at this time. PT tolerating well.
--- NOTE | 2019-05-14 21:16 | NUR ---
Pt given partial bed bath and linen change. Pt able to turn self and assist partially. Pt tolerated well. WOB increased slightly when patient moving. All VSS. Skin remains intact.
[2019-05-15] VITALS (19 sets, daily range): BP systolic 101–133; BP diastolic 66–89
[2019-05-15] MEDS: ACETYLCYSTEINE 20%(200MG/ML) SOL 4ML NEB SCH ×4 (02:23→15:05)
[2019-05-15] MEDS: IPRATROPIUM BROM 0.5 MG/2.5ML INH SOL NEB SCH ×6 (02:23→22:31)
[2019-05-15] MEDS: ALBUTEROL SULF 2.5 MG/0.5ML(0.5%) NEB SOLN NEB SCH ×6 (02:23→22:31)
[2019-05-15 03:59] LABS: Basophils # (auto) 0.2 uL; Basophils % (auto) 3.6 % (0.0-2.0); Eosinophils # (auto) 0.1 uL; Eosinophils % (auto) 1.3 % (0.0-7.0); Hematocrit 34.7 % (41.0-53.0); Hemoglobin 11.9 g/dL (13.5-17.5); Lymphocytes # (auto) 1.2 uL; Lymphocytes % (auto) 22.9 % (10.0-50.0); Mean Corpuscular Hgb Conc. 34.5 g/dL (32.0-36.0); Mean Corpuscular Volume 95.9 fL (80.0-100.0); Monocytes # (auto) 0.8 uL; Monocytes % (auto) 14.1 % (0.0-12.0); Neutrophils # (auto) 3.1 uL; Neutrophils % (auto) 58.1 % (37.0-80.0); Platelet Count (auto) 263 10^3/uL (140-450); Red Blood Cells 3.62 10^6/uL (4.5-5.90); Red Cell Distribution Width 13.1 % (11.8-14.3); White Blood Cell 5.3 10^3/uL (4.4-10.8)
[2019-05-15 04:00] LABS: Albumin 2.2 g/dL (3.4-5.0); Calcium 8.2 mg/dL (8.5-10.1); Magnesium 2.1 mg/dL (1.6-2.6); Potassium 3.7 mmol/L (3.5-5.1)
[2019-05-15 04:03] LABS: BUN/Creatinine Ratio 37.9; Bilirubin, Total 0.7 mg/dL (0.2-1.0); Phosphorus 3.7 mg/dL (2.5-4.90); Total Protein 8.1 g/dL (6.4-8.2)
--- NOTE | 2019-05-15 04:49 | NUR ---
BED STEWART PT PLACED ON BED STEWART PER PT REQUEST. PT HAS GAS, NO BM AT THIS TIME.
--- NOTE | 2019-05-15 05:08 | NUR ---
FAMILY UPDATE CALLED REQUESTING UPDATE, PW PROVIDED. ALL QUESTIONS ADDRESSED AT THIS TIME.
[2019-05-15] MEDS: ACCU-CHEK COMFORT CURVE STRIP VI SCH ×2 (06:00→12:00)
[2019-05-15] MEDS: InsuLIN REG 1unit/0.01ml Soln (100units/ml) SC SCH ×2 (06:00→12:00)
--- NOTE | 2019-05-15 07:30 | NUR ---
REPORT RECEIVED FROM JUTE BAG CLIPPER NURSE. PATIENT ON TOILET AT THIS TIME. RESPIRATIONS EVEN BUT LABORED. SATURATIONS STABLE 92%. ASSISTED PATIENT TO CARDIAC CHAIR. PATIENT GAIT SLIGHTLY UNSTEADY, STANDBY ASSIST. PATIENT TOLERATED WELL. CALL LIGHT IN REACH, PATIENT VERBALIZED UNDERSTANDING TO CALL FOR ASSISTANCE WHEN AMBULATING.
--- NOTE | 2019-05-15 08:26 | NUR ---
DR CENTENO AT BEDSIDE TO ASSESS PATIENT AND DISCUSS PLAN OF CARE.
--- NOTE | 2019-05-15 09:00 | NUR ---
PATIENT ASSISTED TO BED WITH MINIMAL ASSISTANCE.
[2019-05-15] MEDS: BUMETANIDE 2.5mg/10ml (0.25 mg/ml) INJ IV SCH (10:25)
[2019-05-15] MEDS: FAMOTIDINE (10MG/ML) 2ML VL IV SCH (10:26)
[2019-05-15] MEDS: LINEZOLID 600MG/300ML 300 ML IV SCH ×2 (10:26→22:28)
[2019-05-15] MEDS: FLUCONAZOLE 200MG/100ML 100 ML IV SCH (10:26)
[2019-05-15] MEDS: POTASSIUM EFFERVESENT TAB 25 MEQ GT SCH (10:26)
[2019-05-15] MEDS: ENOXAPARIN SOD 40 MG/0.4 ML SYRINGE SC SCH (10:27)
--- NOTE | 2019-05-15 11:00 | NUR ---
UPDATED AT BEDSIDE ON PATIENT STATUS. ALL QUESTIONS AND CONCERNS ADDRESSED.
--- NOTE | 2019-05-15 11:15 | NUR ---
PATIENT ASSISTED TO TOILET WITH MINIMAL ASSISTANCE. PATIENT STILL HAS UNSTEADY GAIT. ONCE COMPLETED ON TOILET PATIENT WAS ASSISTED TO CARDIAC CHAIR. PATIENT TOLERATED WELL. HR AND RR INCREASED TURING MOVEMENT, ONCE IN CHAIR VITAL SIGNS STABLE. WILL CONTINUE TO MONITOR.
--- NOTE | 2019-05-15 12:30 | NUR ---
PATIENT ASSISTED BACK TO BED
--- NOTE | 2019-05-15 15:15 | NUR ---
DR JULIAN AT BEDSIDE TO ASSESS PATIENT AND DISCUSS PLAN OF CARE. ALL ORDERS NOTED IN CHART.
--- NOTE | 2019-05-15 15:32 | NUR ---
PATIENT WALKED AROUND NURSES STATION WITH PHYSICAL THERAPY. PATIENT TOLERATED WELL WITH STEADY GAIT.
--- NOTE | 2019-05-15 18:45 | NUR ---
RT NOTE PT WAS SEEN BY RT FOR HHN AND CPT TX. PT TOLERATES WELL VIA MASK AND CPT TOLERATED WELL WITH MODE ON BED. CONT ORDERED Addendum: 05/15/19 at 4 by Amee Bains RT Amended: Links added.
--- NOTE | 2019-05-15 21:55 | NUR ---
pt transferred via wheel chair by rn, accompanied by pt daughter, on monitoring specialist, portable o2 tank at 3L, with all belongings. transferred to rm 235, care endorsed to Zulma PEERZ.
--- NOTE | 2019-05-15 22:00 | NUR ---
Assumed care of patient from ICU patient alert and oriented x 4, follows direction. On 3L via NC with even and unlabored respirations, no s/s of SOB or distress. Right upper arm PICC triple lumen intact and patent. Bed low locked position with side rails up x 2 and call light within reach. Will continue to monitor q1hr and PRN.
--- NOTE | 2019-05-15 22:30 | NUR ---
RT NOTE PT WAS SEEN BY RT FOR HHN AND CPT TX. PT TOLERATES BOTH WELL AT THIS TIME. PT STATES THAT HE WOULD LIKE TO SLEEP AND WILL TAKE THE NEXT TX IN THE AM AT THE 0600 SCHEDULED TIME. CHRIS FULLER NOTIFIED AND WILL CALL IF PT WANTS TX BEFORE 0600. CONT ORDERED Addendum: 05/15/19 at 2251 by Amee Bains RT Amended: Links added.
[2019-05-16] MEDS: ALBUTEROL SULF 2.5 MG/0.5ML(0.5%) NEB SOLN NEB SCH ×7 (02:00→22:20)
[2019-05-16] MEDS: IPRATROPIUM BROM 0.5 MG/2.5ML INH SOL NEB SCH ×7 (02:00→22:20)
[2019-05-16 05:08] VITALS: BP 121/77
--- NOTE | 2019-05-16 06:53 | NUR ---
Closing Note patient resting in bed with oxygen on, even and unlabored respirations, no s/s of distress or SOB. Patient used walker to ambulate to bathroom, steady gait, voiding with no problems. Bed low locked position with side rails up x 2 and call light within reach, bed alarm on.
[2019-05-16 09:00] VITALS: BP 148/73
[2019-05-16 09:27] VITALS: BP 121/77
--- NOTE | 2019-05-16 10:17 | NUR ---
Respiratory note: At bedside for medneb and CPT tx. Medneb tx given, pt tolerated well, no adverse reactions noted. CPT not done, pt does not want CPT at this time. Will attempt at next scheduled tx.
[2019-05-16] MEDS ORDERED: BUMETANIDE 2.5mg/10ml (0.25 mg/ml) INJ IV ONE (10:45)
[2019-05-16] MEDS ORDERED: POTASSIUM CHL 20 Meq TABLET PO ONE (10:45)
[2019-05-16] MEDS: LINEZOLID 600MG/300ML 300 ML IV SCH ×2 (11:29→21:22)
[2019-05-16] MEDS: ENOXAPARIN SOD 40 MG/0.4 ML SYRINGE SC SCH (11:29)
[2019-05-16] MEDS: FLORASTOR (S. BOULARDII) 250 MG CAP PO SCH (11:29)
[2019-05-16 13:00] VITALS: BP 122/80
--- NOTE | 2019-05-16 14:09 | NUR ---
Nutrition Follow-up Notes Wt.: 86.9 kg as of yesterday. Pt's in isolation room, on oxygen via nasal cannula, immediate family members at bedside, denies any discomfort when rounded this morning. 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 Pt's off from PN support, had swallow eval by ST, currently on Mechanically Chopped Fine diet with fair PO intake aeb 70% ave. consumed meals (x5) in last 2 days. Encouraged to increase food intake through small frequent meals as tolerated. Est. Needs: 1850 kcal to 2350 kcal (20-25 kcal/kgBW), 74 gms to 93 gms pro (0.8-1.0 gms/kgBW). Will continue to monitor pertinent labs and reassess nutrient need prn Labs: No new labs today; 05/15/19 Cl 112 H, BUN 33 H, Ca 8.2 L, AST 40 H, Alb 2.2 L, Prealb 12.6 L, Trig 161 H Skin: Jose Antonio scale 18, mod risk, Left/Right heels blanched redness per chainstitch tunnel elastic operator. Pls refer to latest clinical laboratory technician's notes for further details re: tx plans. GI: Pt had 4x BM 05/15/19 per chainstitch tunnel elastic operator. PES: Resolved: Increased nutrient needs r/t acute/chronic medical condition aeb intubated, sedated, severe hypoalbuminemia, TPN. Altered nutrition related lab values r/t current/chronic medical condition aeb hyponatremia, hypochloremia, elev. LFTs, hyperbilirubinemia, hypocalcemia and severe hypoalbuminemia Obesity r/t energy input more than body requirement [id number]% IBW, BMI 32.3 kg/m2 and increased body adiposity Will continue to monitor PO intake, skin status, pertinent labs and weight trend. F/u in 3 to 5 days. Rec.: 1.) If AST and Trig continue trending up, consider Mechanically Chopped Fine Low Fat diet. 2.) If Albumin continues trending down, consider Prostat 1 pkt BID. 3.) Continue close supervision with meals. 4.) Refer pt to RD for further nutrition education and weight monitoring upon discharge. 5.) Continue current plan of care.
[2019-05-16 17:00] VITALS: BP 104/75
--- NOTE | 2019-05-16 19:20 | NUR ---
RT NOTE PT WAS SEEN BY RT FOR HHN AND CPT TX. PT TOLERATES WELL. PT FOUND ON ROOM AIR WITH SATS AT 80%. PLACED PT BACK ON 4L NASAL CANNULA POST TX WITH SATS AT 95% Addendum: 05/16/19 at 1947 by Amee Bains RT Amended: Links added.
[2019-05-16 22:00] VITALS: BP 112/66
--- NOTE | 2019-05-16 22:27 | NUR ---
RT NOTE PT WAS SEEN BY RT FOR HHN AND CPT TX. PT IS JUST FALLING ASLEEP AND DOES NOT WANT TO TAKE TX AT THIS TIME. HR 89, RR 19, BS CLEAR/DIM, POX 96% ON 4L NASAL CANNULA. RN APOL NOTIFIED AND WILL CALL IF TX NEEDED Addendum: 05/16/19 at 2229 by Amee Bains RT Amended: Links added.
[2019-05-17] MEDS: ALBUTEROL SULF 2.5 MG/0.5ML(0.5%) NEB SOLN NEB SCH ×6 (02:30→22:18)
[2019-05-17] MEDS: IPRATROPIUM BROM 0.5 MG/2.5ML INH SOL NEB SCH ×6 (02:30→22:18)
--- NOTE | 2019-05-17 02:30 | NUR ---
RT NOTE PT WAS SEEN BY RT FOR HHN TX. PT IS AWAKE BUT SLEEPY AND REQUESTS TO HOLD TREATMENT AND REQUESTS TO TAKE IT NEXT ROUNDS. NO SOB OR DISTRESS NOTED. HR 77, RR 16, BS CLEAR/DIM ,POX 96% ON 3L NASAL CANNULA. CONT ORDERED Addendum: 05/17/19 at 0305 by Amee Bains RT Amended: Links added.
[2019-05-17 05:00] VITALS: BP 107/63
--- NOTE | 2019-05-17 06:15 | NUR ---
OFFERED AM CARE, BED BATH, PATIENT WANTS TO DO IT LATER.
[2019-05-17 09:00] VITALS: BP 127/71
[2019-05-17] MEDS: FLUCONAZOLE 100 MG TAB PO SCH (10:34)
[2019-05-17] MEDS: ENOXAPARIN SOD 40 MG/0.4 ML SYRINGE SC SCH (10:34)
[2019-05-17] MEDS: LINEZOLID 600MG/300ML 300 ML IV SCH ×2 (10:37→21:49)
[2019-05-17] MEDS: FLORASTOR (S. BOULARDII) 250 MG CAP PO SCH (10:39)
[2019-05-17 11:00] LABS: Basophils # (auto) 0.1 uL; Basophils % (auto) 1.2 % (0.0-2.0); Eosinophils # (auto) 0.1 uL; Eosinophils % (auto) 1.7 % (0.0-7.0); Hematocrit 35.7 % (41.0-53.0); Hemoglobin 12.4 g/dL (13.5-17.5); Lymphocytes # (auto) 1.1 uL; Lymphocytes % (auto) 24.1 % (10.0-50.0); Mean Corpuscular Hgb Conc. 34.6 g/dL (32.0-36.0); Mean Corpuscular Volume 95.4 fL (80.0-100.0); Monocytes # (auto) 0.7 uL; Monocytes % (auto) 15.4 % (0.0-12.0); Neutrophils # (auto) 2.7 uL; Neutrophils % (auto) 57.6 % (37.0-80.0); Nucleated Red Blood Cells % 0.1 %; Platelet Count (auto) 306 10^3/uL (140-450); Red Blood Cells 3.75 10^6/uL (4.5-5.90); Red Cell Distribution Width 13.1 % (11.8-14.3); White Blood Cell 4.6 10^3/uL (4.4-10.8)
[2019-05-17 11:06] LABS: Albumin 2.4 g/dL (3.4-5.0); Calcium 8.4 mg/dL (8.5-10.1); Magnesium 2.1 mg/dL (1.6-2.6)
[2019-05-17 11:10] LABS: BUN/Creatinine Ratio 34.6; Bilirubin, Total 0.4 mg/dL (0.2-1.0); Total Protein 7.5 g/dL (6.4-8.2)
[2019-05-17 13:00] VITALS: BP 134/75
--- NOTE | 2019-05-17 15:30 | NUR ---
Picc line dressing changed.
[2019-05-17 16:42] VITALS: BP 123/86
[2019-05-17 21:45] VITALS: BP 133/80
[2019-05-18] MEDS: IPRATROPIUM BROM 0.5 MG/2.5ML INH SOL NEB SCH ×6 (02:07→22:09)
[2019-05-18] MEDS: ALBUTEROL SULF 2.5 MG/0.5ML(0.5%) NEB SOLN NEB SCH ×6 (02:07→22:09)
[2019-05-18 04:44] VITALS: BP 115/68
[2019-05-18 08:48] VITALS: BP 114/67
[2019-05-18] MEDS: LINEZOLID 600MG/300ML 300 ML IV SCH ×2 (10:50→21:56)
[2019-05-18] MEDS: FLUCONAZOLE 100 MG TAB PO SCH (10:50)
[2019-05-18] MEDS: FLORASTOR (S. BOULARDII) 250 MG CAP PO SCH (10:51)
[2019-05-18] MEDS: ENOXAPARIN SOD 40 MG/0.4 ML SYRINGE SC SCH (10:51)
--- NOTE | 2019-05-18 10:54 | NUR ---
INFORMED DOCTOR LAURIE PICCLINE FLUSHES WELL,BUT NO BLOOD RETURN. ORDERS RECEIVED TO D/C PICC LINE AND GET MIDLINE. PER DOCTOR LAURIE D/Helen PICCLINE AFTER PATIENT GETS MIDLINE PLACED.
--- NOTE | 2019-05-18 12:51 | NUR ---
Pt reports no c/o pain and or discomfort. Pt was able to gait w/ out using a FWW. Pt is CGA for ambulation. Pt was able to ambulate 300ft x2 laps, good kristel to Rx Addendum: 05/18/19 at 1252 by Beryl Bishop PT Amended: Links added.
[2019-05-18 13:00] VITALS: BP 119/77
--- NOTE | 2019-05-18 14:00 | NUR ---
WOUND CARE NOTE: Weekly reevaluation by wound care team. Patient is now on telemetry and is no longer intubated and sedated. Last Jose Antonio score is 18. Patient continues to be wound free. Patient able to turn self in bed. Patient is ambulating out of bed with physical therapy. No further need by wound care team.
[2019-05-18 17:05] VITALS: BP 118/70
--- NOTE | 2019-05-18 19:16 | NUR ---
Patient is awake and alert with even and unlabored respirations. No S/S of distress noted. Family at bedside. Care endorsed to NOC RN.
--- NOTE | 2019-05-18 19:18 | NUR ---
Opening Shift Note Assumed care of patient, awake and alert. No S/S of distress/SOB or pain. Instructed on POC and to call for assist PRN, will continue to monitor for changes Q1hr and PRN. Call solorio with in reach, bed in low position.
[2019-05-18 22:18] VITALS: BP 123/63
[2019-05-19] MEDS: IPRATROPIUM BROM 0.5 MG/2.5ML INH SOL NEB SCH ×6 (02:15→22:22)
[2019-05-19] MEDS: ALBUTEROL SULF 2.5 MG/0.5ML(0.5%) NEB SOLN NEB SCH ×6 (02:15→22:22)
[2019-05-19 05:09] VITALS: BP 111/63
[2019-05-19 06:38] LABS: Basophils # (auto) 0.1 uL; Basophils % (auto) 2.7 % (0.0-2.0); Eosinophils # (auto) 0.2 uL; Eosinophils % (auto) 3.6 % (0.0-7.0); Hematocrit 30.9 % (41.0-53.0); Hemoglobin 10.7 g/dL (13.5-17.5); Lymphocytes # (auto) 1.3 uL; Lymphocytes % (auto) 27.5 % (10.0-50.0); Mean Corpuscular Hemoglobin 33.2 pg (28.0-32.0); Mean Corpuscular Hgb Conc. 34.8 g/dL (32.0-36.0); Mean Corpuscular Volume 95.6 fL (80.0-100.0); Monocytes # (auto) 0.6 uL; Monocytes % (auto) 13.3 % (0.0-12.0); Neutrophils # (auto) 2.4 uL; Neutrophils % (auto) 52.9 % (37.0-80.0); Platelet Count (auto) 239 10^3/uL (140-450); Red Blood Cells 3.23 10^6/uL (4.5-5.90); Red Cell Distribution Width 13.1 % (11.8-14.3); White Blood Cell 4.6 10^3/uL (4.4-10.8)
[2019-05-19 06:52] LABS: Albumin 2.3 g/dL (3.4-5.0); Calcium 8.3 mg/dL (8.5-10.1)
[2019-05-19 06:56] LABS: Bilirubin, Total 0.5 mg/dL (0.2-1.0); Total Protein 6.6 g/dL (6.4-8.2)
--- NOTE | 2019-05-19 07:25 | NUR ---
Opening Shift Note Assumed care of patient, awake and alert. No S/S of distress/SOB, no pain noted or reported. Updated on POC and instructed to call for assistance as needed, patient verbalized understanding. Bed locked in lowest position, side rails up x2, call light within reach. Will continue to monitor for changes Q1hr and PRN.
[2019-05-19 09:00] VITALS: BP 114/65
[2019-05-19] MEDS: FLUCONAZOLE 100 MG TAB PO SCH (10:01)
[2019-05-19] MEDS: FLORASTOR (S. BOULARDII) 250 MG CAP PO SCH (10:01)
[2019-05-19] MEDS: LINEZOLID 600MG/300ML 300 ML IV SCH (10:01)
[2019-05-19] MEDS: ENOXAPARIN SOD 40 MG/0.4 ML SYRINGE SC SCH (10:02)
[2019-05-19 10:38] VITALS: BP 114/65
[2019-05-19] MEDS ORDERED: POTASSIUM CHL 20 Meq TABLET PO ONE (11:45)
[2019-05-19] MEDS ORDERED: SULFAMETHOX W/TRIMETH(800/160MG) DS TAB PO ONE (11:45)
[2019-05-19] MEDS ORDERED: BUMETANIDE 2.5mg/10ml (0.25 mg/ml) INJ IV ONE (11:45)
--- NOTE | 2019-05-19 11:49 | NUR ---
Nutrition Follow-up Notes Wt.: 86.2 kg Pt's in isolation room, on oxygen via nasal cannula, sleeping no distress noted per nursing currently on Mechanically Chopped Fine diet with inadequate PO of 50% x 4 per RN doc Est. Needs: 1850 kcal to 2350 kcal (20-25 kcal/kgBW), 74 gms to 93 gms pro (0.8-1.0 gms/kgBW). Will continue to monitor pertinent labs and reassess nutrient need prn Labs: BUN 20 H, ALB 2.3 L, CA 8.3 L. Skin: Jose Antonio scale 20 low risk, Left/Right heels blanched redness per brickmason. Pls refer to latest dramatic coach's notes for further details re: tx plans. GI: Pt had 4x BM yesterday per brickmason. PES: Resolved: Increased nutrient needs r/t acute/chronic medical condition aeb intubated, sedated, severe hypoalbuminemia, TPN. Altered nutrition related lab values r/t current/chronic medical condition aeb hyponatremia, hypochloremia, elev. LFTs, hyperbilirubinemia, hypocalcemia and severe hypoalbuminemia Obesity r/t energy input more than body requirement [id number]% IBW, BMI 32.3 kg/m2 and increased body adiposity Will continue to monitor PO intake, skin status, pertinent labs and weight trend. F/u in 3 to 5 days. Rec.: 1.) If AST and Trig continue trending up, consider Mechanically Chopped Fine Low Fat diet. 2.) If Albumin continues trending down, consider Prostat 1 pkt BID. 3.) Continue close supervision with meals. 4.) Refer pt to RD for further nutrition education and weight monitoring upon discharge. 5.) Continue current plan of care.
[2019-05-19 13:00] VITALS: BP 115/65
[2019-05-19 16:45] VITALS: BP 113/67
--- NOTE | 2019-05-19 18:48 | NUR ---
Patient rounds Patient sitting up in bed eating dinner. No s/s of distress or SOB. Will endorse care to manufacturing supervisor 2nd shift RN.
--- NOTE | 2019-05-19 19:48 | NUR ---
Opening Shift Note Assumed care of patient, awake and alert. No S/S of distress/SOB or pain. Instructed on POC and to call for assist PRN, will continue to monitor for changes Q1hr and PRN. Denies pain or discomfort. Bed in low position. Call solorio with in reach.
[2019-05-19] MEDS: SULFAMETHOX W/TRIMETH(800/160MG) DS TAB PO SCH (21:04)
[2019-05-19 21:57] VITALS: BP 111/62
[2019-05-20] MEDS: IPRATROPIUM BROM 0.5 MG/2.5ML INH SOL NEB SCH ×4 (02:09→14:29)
[2019-05-20] MEDS: ALBUTEROL SULF 2.5 MG/0.5ML(0.5%) NEB SOLN NEB SCH ×4 (02:09→14:30)
[2019-05-20 05:01] VITALS: BP 152/86
--- NOTE | 2019-05-20 07:30 | NUR ---
Opening Shift Note Assumed care of patient, awake, alert, and oriented. No S/S of distress/SOB or pain. Bed in lowest/locked position, bed rails up x2. Instructed on POC and to call for assist PRN with call light within reach. Will continue to monitor for changes Q1hr and PRN.
[2019-05-20 09:00] VITALS: BP 116/69
--- NOTE | 2019-05-20 09:52 | NUR ---
PT WENT TO PATIENTS ROOM TO FIND OUT PATIENT WAS WALKING AROUND THE HALLWAYS FREELY WITH NO ASSISTANCE NEEDED. PATIENT NO LONGER NEEDS PHYSICAL THERAPY AT THIS TIME. Addendum: 05/20/19 at 0954 by NARGIS AVENDAÑO PTT Amended: Links added.
[2019-05-20] MEDS: SULFAMETHOX W/TRIMETH(800/160MG) DS TAB PO SCH (10:00)
[2019-05-20] MEDS: FLORASTOR (S. BOULARDII) 250 MG CAP PO SCH (10:00)
[2019-05-20] MEDS: FLUCONAZOLE 100 MG TAB PO SCH (10:00)
--- NOTE | 2019-05-20 12:00 | NUR ---
MD ROUNDS DR PICKETT AT BEDSIDE DISCUSSING POC WITH PATIENT AND . ALL QUESTIONS/CONCERNS ANSWERED. NEW ORDERS RECEIVED/CARRIED OUT. WILL CONTINUE TO MONITOR
[2019-05-20 13:00] VITALS: BP 119/72
--- NOTE | 2019-05-20 15:41 | NUR ---
LAB MRSA SWAB SENT
--- NOTE | 2019-05-20 16:06 | NUR ---
Discharge instructions given as ordered. Encourage to follow up with PMD as instructed. All questions and concerns addressed. Patient verbalized understanding. PICC line removed with catheter intact, pressure dressing applied. Telemetry unit returned to ICU. Patient taken to vehicle via wheelchair with all personal belongings, accompanied by staff and family member. No distress noted at time of departure.
== END 2019-05-20 15:55 | disposition home or self-care (01) | DRG 720 ==
LOC: EDBD 18:32 → ER 18:32 → OVERFLOW 18:33 → ICU CENTRL 05-01 03:15 → DOU IN ICU 05-01 03:16 → ICU WEST 05-04 11:30 → TELE-EAST 05-15 22:00
PROVIDERS: ADMIT Nurse Practitioner; ATTEND Internal Medicine
PROC: 02HV33Z Insertion of Infusion Device into Superior Vena Cava, Percutaneous Approach (ICD-10-PCS; 2019-05-04)
PROC: 0BH17EZ Insertion of Endotracheal Airway into Trachea, Via Natural or Artificial Opening (ICD-10-PCS; 2019-05-04)
PROC: B548ZZA Ultrasonography of Superior Vena Cava, Guidance (ICD-10-PCS; 2019-05-04)
PROC: 0B928ZZ Drainage of Carina, Via Natural or Artificial Opening Endoscopic (ICD-10-PCS; 2019-05-04)
PROC: 5A1955Z Respiratory Ventilation, Greater than 96 Consecutive Hours (ICD-10-PCS; principal; 2019-05-04 14:20)
PROC: 5A09357 Assistance with Respiratory Ventilation, Less than 24 Consecutive Hours, Continuous Positive Airway Pressure (ICD-10-PCS; 2019-05-09)
PROC: 0BH17EZ Insertion of Endotracheal Airway into Trachea, Via Natural or Artificial Opening (ICD-10-PCS; 2019-05-10)
PROC: 02HV33Z Insertion of Infusion Device into Superior Vena Cava, Percutaneous Approach (ICD-10-PCS; 2019-05-10)
DX: A41.9 Sepsis, unspecified organism (principal); J96.00 Acute respiratory failure, unspecified whether with hypoxia or hypercapnia; K72.00 Acute and subacute hepatic failure without coma; E43 Unspecified severe protein-calorie malnutrition; J15.212 Pneumonia due to Methicillin resistant Staphylococcus aureus; R65.21 Severe sepsis with septic shock; I50.31 Acute diastolic (congestive) heart failure; D69.6 Thrombocytopenia, unspecified; E88.09 Other disorders of plasma-protein metabolism, not elsewhere classified; I27.20 Pulmonary hypertension, unspecified; R16.1 Splenomegaly, not elsewhere classified; R19.7 Diarrhea, unspecified; I11.0 Hypertensive heart disease with heart failure; E22.2 Syndrome of inappropriate secretion of antidiuretic hormone; N28.9 Disorder of kidney and ureter, unspecified; R79.89 Other specified abnormal findings of blood chemistry; E66.9 Obesity, unspecified; E87.6 Hypokalemia; J98.11 Atelectasis; D72.819 Decreased white blood cell count, unspecified; Z79.899 Other long term (current) drug therapy; Z68.29 Body mass index [BMI] 29.0-29.9, adult; Z71.3 Dietary counseling and surveillance
CPT/HCPCS: 31645; 36415; 36569; 36600; 71045; 71250; 71275; 76705; 80048; 80053; 80061; 80202; 80307; 81001; 82040; 82533; 82570; 82805; 82962; 83036; 83516; 83605; 83735; 83880; 83930; 83935; 84100; 84156; 84295; 84300; 84443; 84478; 84484; 84550; 85007; 85025; 85027; 85379; 85610; 85652; 85730; 86141; 86225; 86235; 86431; 86703; 86704; 86706; 86708; 86803; 87040; 87045; 87070; 87077; 87081; 87186; 87205; 87278; 87340; 87427; 87449; 87493; 87804; 92507; 92610; 93005; 93306; 93970; 94002; 94003; 94640; 94660; 94668; 96361; 96365; 96367; 96375; 97110; 97116; 97530; A4618; G0378; J0171; J0330; J0696; J1450; J1956; J2001; J2250; J2543; J2704; J3480; J3490; J7060